=== PATIENT | male | born 1950 | race African-American/Black ===

== ENCOUNTER 2017-02-15 03:08 | Inpatient (IN) | payer MEDICARE ==
[~2017-02-15] VITALS: Ht 182.9 cm; Wt 95.3 kg
[2017-02-15] MEDS ORDERED: NKM (03:17)
[2017-02-15] MEDS ORDERED: Ketorolac 30mg Inj IV ONE (03:30)
[2017-02-15 03:47] LABS: MEAN CORPUSCULAR HGB CONC 29.9 G/DL (32.0-36.0); MEAN CORPUSCULAR VOLUME 84 FL (80-99); MEAN PLATELET VOLUME 8.5 FL (6.5-10.1); PLATELET COUNT 134 K/UL (150-450); RED CELL DISTRIBUTION WIDTH 12.8 % (11.6-14.8); WHITE BLOOD COUNT 3.4 K/UL (4.8-10.8)
[2017-02-15 03:52] VITALS: BP 126/86
[2017-02-15 04:02] LABS: ANION GAP 10 mmol/L (5-15); CALCIUM 9.2 MG/DL (8.5-10.1); CARBON DIOXIDE 28 MMOL/L (21-32); CHLORIDE 103 MMOL/L (98-107); GLOMERULAR FILTRATION RATE > 60 mL/min (>60); INR 1.1 (0.9-1.1); POTASSIUM 3.4 MMOL/L (3.5-5.1); PROTHROMBIN TIME 11.6 SEC (9.30-11.50); SODIUM 141 MMOL/L (136-145)
[2017-02-15 04:12] LABS: ALANINE AMINOTRANSFERASE 325 U/L (12-78); ALBUMIN/GLOBULIN RATIO 1.5 (1.0-2.7); AMYLASE 395 U/L (25-115); ASPARTATE AMINO TRANSFERASE 131 U/L (15-37); LIPASE 5188 U/L (73-393); TOTAL PROTEIN 7.9 G/DL (6.4-8.2)
[2017-02-15 04:21] LABS: APPEARANCE,URINE CLEAR; KETONES,URINE 1+ (NEGATIVE); LEUKOCYTE ESTERASE ,URINE 1+ (NEGATIVE); PH,URINE 5 (4.5-8.0); PROTEIN,URINE 3+ (NEGATIVE); UROBILINOGEN,URINE 12 MG/DL (0.0-1.0)
--- NOTE | 2017-02-15 04:29 | Emergency Room Report ---
History of Present Illness General Chief Complaint: Abdominal Pain Source: Patient Present Illness HPI This is a 66-year-old male with no past progression. He presents with chief complaint abdominal constipation. Onset for last couple days. He said that he has no abdominal pain and vomiting. That got better. Now complaining of constipation. Has the urge but cannot defecate. Brought him in is that yelling of his eyes. This is new. Onset for last couple days. No fever chills no chest pain. Allergies: Coded Allergies: No Known Allergies (Unverified , 02/15/17) Patient History Past Medical History: see triage record, old chart reviewed Past Surgical History: none Pertinent Family History: none Social History: Denies: smoking Immunizations: other Reviewed Nursing Documentation: PMH: Agreed, PSxH: Agreed Nursing Documentation-PMH Past Medical History: No Stated History Review of Systems Eye: Denies: eye pain, blurred vision ENT: Denies: ear pain, nose congestion, throat swelling Respiratory: Denies: cough, shortness of breath Cardiovascular: Denies: chest pain, palpitations Gastrointestinal: Reports: abdominal pain, nausea, Denies: diarrhea, vomiting Musculoskeletal: Denies: back pain, joint pain Skin: Denies: rash Neurological: Denies: headache, numbness Endocrine: Denies: increased thirst, increased urine Hematologic/Lymphatic: Denies: easy bruising All Other Systems: negative except mentioned in HPI Physical Exam Vital Signs Date Time Temp Pulse Resp B/P (MAP) Pulse Ox O2 Delivery O2 Flow Rate FiO2 02/15/17 03:12 97.3 67 18 126/86 99 Room Air vitals normal Sp02 EP Interpretation: reviewed, normal General Appearance: well appearing, no apparent distress, alert Head: normocephalic, atraumatic Eyes: bilateral eye PERRL, bilateral eye EOMI, bilateral eye scleral icterus ENT: hearing grossly normal, normal pharynx Neck: full range of motion, supple, no meningismus Respiratory: chest non-tender, lungs clear, normal breath sounds Cardiovascular #1: regular rate, rhythm, no murmur Gastrointestinal: normal bowel sounds, no mass, no organomegaly, no bruit, non- distended, tenderness - Upper quadrants Musculoskeletal: back normal, gait/station normal, normal range of motion Neurologic: alert, oriented x3 Psychiatric: mood/affect normal Skin: warm/dry Medical Decision Making Diagnostic Impression: Primary Impression: Jaundice Additional Impressions: Pancreatitis, acute Qualified Codes: K85.90 - Acute pancreatitis without necrosis or infection, unspecified Liver mass ER Course This patient presents with painless jaundice and has pancreatitis. This is concerning for neoplastic process. CT scan showed several liver lesions. Gallbladder unremarkable. We'll get for further workup. Lab Results Impression labs with abnormal LFTs CT/MRI/US Diagnostic Results CT/MRI/US Diagnostic Results : Imaging Test Ordered: CT abdomen and pelvis Impression Read by radiologist. Several of liver hypodensities. Normal appendix. Last Vital Signs Date Time Temp Pulse Resp B/P (MAP) Pulse Ox O2 Delivery O2 Flow Rate FiO2 02/15/17 03:52 97.3 60 18 126/86 99 Room Air Status: unchanged Disposition: ADMITTED INPATIENT Condition: Serious Referrals: NON PHYSICIAN (PCP) BENJAMIN DUNCAN M.D. Feb 15, 2017 04:29
[2017-02-15 04:33] LABS: NITRITE,URINE NEGATIVE (NEGATIVE)
[2017-02-15 04:35] LABS: FINE GRANULAR CASTS,URINE 0-2 /LPF; MUCUS,URINE MODERATE /LPF (NONE/OCC); RBC,URINE 0-2 /HPF (0 - 0); SQUAMOUS EPITHELIAL CELL,UR FEW /LPF (NONE/OCC); WBC,URINE 0-2 /HPF (0 - 0)
[2017-02-15 04:36] LABS: ICTOTEST POSITIVE
[2017-02-15 04:48] LABS: BILIRUBIN,DIRECT 3.8 MG/DL (0.0-0.3)
[2017-02-15 05:49] VITALS: BP 125/79
[2017-02-15 08:15] VITALS: BP 143/78
[2017-02-15] MEDS ORDERED: Morphine Sulfate 4mg/ml Inj IVP PRN (09:00)
[2017-02-15] MEDS: Heparin 5000 units/ml inj SUBQ SCH ×2 (09:00→20:21)
[2017-02-15] MEDS ORDERED: Morphine Sulfate 2mg/ml Inj IVP PRN (09:00)
[2017-02-15] MEDS ORDERED: D5 1/2NS w/KCl 20mEq 1,000 ML IV SCH (10:00)
[2017-02-15 12:15] VITALS: BP 139/50
--- NOTE | 2017-02-15 15:35 | History & Physical ---
History and Physical History & Physicial Tre Thomas MD Feb 15, 2017 15:35
--- NOTE | 2017-02-15 15:51 | GI Initial Consult Note ---
SummerRosie Victor M N.P. 02/15/17 1551: History of Present Illness General Date patient seen: Feb 15, 2017 Time patient seen: 15:40 Reason for Hospitalization: Abdominal Pain Referring physician: OMAR HUDSON Reason for Consultation: ELEVATED LFTs Present Illness HPI This is a 66-year-old male with no past progression. He presents with chief complaint abdominal constipation. Onset for last couple days. He said that he has no abdominal pain and vomiting. That got better. Now complaining of constipation. Has the urge but cannot defecate. Brought him in is that yelling of his eyes. This is new. Onset for last couple days. No fever chills no chest pain. GI consulted for pancreatitis, gallstones. HPI as noted above. Pt seen on floor , awake A&Ox4 NAD with no active s/sx of N/V/D. Pt has mild abdominal pain at this time. MRCP done today. The patient presents today with elevated LFTs and lipase. No history of endoscopies. Last colonoscopy over 10 years with unremarkable results. Patient wishes to be discharged for the holidays and return as outpatient for procedure. Home Meds Reported Medications No Known Medications* (NKM - No Known Medications*) ., 0 ., 0 Refills 02/15/17 Med list reviewed/reconciled: Yes Allergies: Coded Allergies: No Known Allergies (Unverified , 02/15/17) Patient History History Provided By: Patient, Medical Record PMH Narrative Past Medical History: see triage record, old chart reviewed Past Surgical History: none Pertinent Family History: none Social History: Denies: smoking Immunizations: other Reviewed Nursing Documentation: PMH: Agreed, PSxH: Agreed Nursing Documentation-PMH Past Medical History: No Stated History Review of Systems All Other Systems: negative except mentioned in HPI Physical Exam Vital Signs Date Time Temp Pulse Resp B/P (MAP) Pulse Ox O2 Delivery O2 Flow Rate FiO2 02/15/17 03:12 97.3 67 18 126/86 99 Room Air Sp02 EP Interpretation: reviewed, normal Labs Laboratory Tests Test 02/15/17 03:33 02/15/17 03:50 White Blood Count 3.4 K/UL (4.8-10.8) L Red Blood Count 5.50 M/UL (4.70-6.10) Hemoglobin 13.7 G/DL (14.2-18.0) L Hematocrit 46.0 % (42.0-52.0) Mean Corpuscular Volume 84 FL (80-99) Mean Corpuscular Hemoglobin 25.0 PG (27.0-31.0) L Mean Corpuscular Hemoglobin Concent 29.9 G/DL (32.0-36.0) L Red Cell Distribution Width 12.8 % (11.6-14.8) Platelet Count 134 K/UL (150-450) L Mean Platelet Volume 8.5 FL (6.5-10.1) Neutrophils (%) (Auto) % (45.0-75.0) Lymphocytes (%) (Auto) % (20.0-45.0) Monocytes (%) (Auto) % (1.0-10.0) Eosinophils (%) (Auto) % (0.0-3.0) Basophils (%) (Auto) % (0.0-2.0) Prothrombin Time 11.6 SEC (9.30-11.50) H Prothromb Time International Ratio 1.1 (0.9-1.1) Activated Partial Thromboplast Time 23 SEC (23-33) Sodium Level 141 MMOL/L (136-145) Potassium Level 3.4 MMOL/L (3.5-5.1) L Chloride Level 103 MMOL/L (98-107) Carbon Dioxide Level 28 MMOL/L (21-32) Anion Gap 10 mmol/L (5-15) Blood Urea Nitrogen 16 mg/dL (7-18) Creatinine 1.0 MG/DL (0.55-1.30) Estimat Glomerular Filtration Rate > 60 mL/min (>60) Glucose Level 116 MG/DL (74-106) H Calcium Level 9.2 MG/DL (8.5-10.1) Total Bilirubin 8.9 MG/DL (0.2-1.0) H Direct Bilirubin 3.8 MG/DL (0.0-0.3) H Aspartate Amino Transf (AST/SGOT) 131 U/L (15-37) H Alanine Aminotransferase (ALT/SGPT) 325 U/L (12-78) H Alkaline Phosphatase 83 U/L (46-116) Total Protein 7.9 G/DL (6.4-8.2) Albumin 4.7 G/DL (3.4-5.0) Globulin 3.2 g/dL Albumin/Globulin Ratio 1.5 (1.0-2.7) Amylase Level 395 U/L (25-115) H Lipase 5188 U/L (73-393) H Urine Color Daysi Urine Appearance Clear Urine pH 5 (4.5-8.0) Urine Specific [place] 1.025 (1.005-1.035) Urine Protein 3+ (NEGATIVE) H Urine Glucose (UA) Negative (NEGATIVE) Urine Ketones 1+ (NEGATIVE) H Urine Occult Blood 2+ (NEGATIVE) H Urine Nitrite Negative (NEGATIVE) Urine Bilirubin 3+ (NEGATIVE) H Urine Ictotest Positive Urine Urobilinogen 12 MG/DL (0.0-1.0) H Urine Leukocyte Esterase 1+ (NEGATIVE) H Urine RBC 0-2 /HPF (0 - 0) H Urine WBC 0-2 /HPF (0 - 0) Urine Squamous Epithelial Cells Few /LPF (NONE/OCC) Urine Bacteria None /HPF (NONE) Urine Fine Granular Casts 0-2 /LPF (NONE) H Urine Mucus Moderate /LPF (NONE/OCC) H General Appearance: well appearing, no apparent distress, alert Head: normocephalic EENT: PERRL/EOMI, normal ENT inspection Neck: supple Respiratory: normal breath sounds, no respiratory distress Cardiovascular: normal rate Gastrointestinal: normal inspection, non tender, soft, normal bowel sounds, non -distended Rectal: deferred Genitourinary: deferred Musculoskeletal: normal inspection, back normal Neurologic: normal inspection, alert, oriented x3, responsive Psychiatric: normal inspection, judgement/insight normal, memory normal Skin: normal inspection, normal color, no rash, warm/dry, palpation normal, well hydrated Lymphatic: normal inspection, no adenopathy Current Medications Current Medications Medications (Trade) Dose Ordered Sig/Alexander Route PRN Reason Start Time Stop Time Status Last Admin Dose Admin Dextrose/ Electrolytes 1,000 ml @ 75 mls/hr [id number] IV 02/15/17 10:00 03/17/17 09:59 02/15/17 11:41 Heparin Sodium (Porcine) (Heparin 5000 units/ml) 5,000 units EVERY 12 HOURS SUBQ 02/15/17 09:00 03/17/17 08:59 Morphine Sulfate (Morphine Sulfate) 2 mg Q4H PRN IVP Moderate Pain (Pain Scale 4-6) 02/15/17 09:00 02/22/17 08:59 Morphine Sulfate (Morphine Sulfate) 4 mg Q4H PRN IVP Severe Pain (Pain Scale 7-10) 02/15/17 09:00 02/22/17 08:59 Ondansetron HCl (Zofran) 4 mg Q4H PRN IVP Nausea & Vomiting 02/15/17 09:00 03/17/17 08:59 GI: Plan Problems: (1) LFT elevation (2) Pancreatitis, acute Plan LFTs highly suggestive of biliary obstruction >> fu MRCP, will consider ERCP vs ruthann maintain NPO + IVFs pain mgmt fu labs Discussed with Dr. Barrett. Thank you for this patient referral, we will follow. MAXX BARRETT 02/19/17 0814: History of Present Illness General Reason for Hospitalization: Abdominal Pain Present Illness Home Meds Reported Medications No Known Medications* (NKM - No Known Medications*) ., 0 ., 0 Refills 02/15/17 Allergies: Coded Allergies: No Known Allergies (Unverified , 02/15/17) GI: Plan Plan The patient was seen and examined at bedside and all new and available data was reviewed in the patients chart. I agree with the above findings, impression and plan. (Patient seen earlier today. Signature stamp does not reflect patient encounter time.). - MD Summer [facility] Victor M N.PCarmenza Feb 15, 2017 15:51 MAXX BARRETT Feb 19, 2017 08:14
[2017-02-15 16:15] VITALS: BP 136/86
--- NOTE | 2017-02-15 17:52 | Consultation ---
History of Present Illness General Date patient seen: Feb 15, 2017 Chief Complaint: Abdominal Pain Referring physician: OMAR HUDSON Reason for Consultation: gallstone pancreatitis Present Illness HPI 66 year old male with no known past medical history presented to ED with complaints of abdominal pain. Patient states that he was well until 5 days ago when he first began to have some vague upper abdominal pain. pain described as dull cramping in the epigastric/RUQ region. no radiation of pain. associated nausea and non bloody emesis. has not had real BM since. does have okay urine output but notes urine is very dark. over the past two days noted his sclera turning yellow. In ED labs demonstrated elevated t bili, elevated lft's, no leukocytosis. CT/MRI completed and reviewed. patient states he does not regularly follow with PCP. he does not have any known medical history. he has no surgical history. denies alcohol or drug use. does not take any meds. Allergies: Coded Allergies: No Known Allergies (Unverified , 02/15/17) Medication History Scheduled No Known Medications* (NKM - No Known Medications*), 0 ., (Reported) Patient History History Provided By: Patient Healthcare decision maker Resuscitation status Full Code Advanced Directive on File No Past Medical/Surgical History Past Medical/Surgical History: (1) Acute gallstone pancreatitis (2) Jaundice (3) Liver mass (4) Pancreatitis, acute (5) LFT elevation Review of Systems Constitutional: Denies: no symptoms, see HPI, chills, sweats, fever, malaise, weakness, other Eye: Denies: no symptoms, see HPI, eye pain, blurred vision, tearing, double vision, nose pain, nose congestion, acuity changes, discharge, other ENT: Denies: no symptoms, see HPI, ear pain, ear discharge, nose pain, nose congestion, throat pain, throat swelling, mouth pain, hearing loss, nasal discharge, other Respiratory: Denies: no symptoms, see HPI, cough, orthopnea, shortness of breath, stridor, wheezing, CELESTE, sputum, other Cardiovascular: Denies: no symptoms, see HPI, chest pain, edema, palpitations, syncope, PND, other Gastrointestinal: Reports: abdominal pain, constipation, nausea Genitourinary: Denies: no symptoms, see HPI, discharge, dysuria, frequency, hematuria, pain, retention, incontinence, urgency, vag bleed/dc, other Musculoskeletal: Denies: no symptoms, see HPI, back pain, gout, joint pain, joint swelling, muscle pain, muscle stiffness, other Skin: Denies: no symptoms, see HPI, rash, change in color, change in hair/nails , dryness, lesions, other Psychiatric: Denies: no symptoms, see HPI, prior hx, anxiety, depressed feelings, emotional problems, SI, HI, hallucinations, other Neurological: Denies: no symptoms, see HPI, headache, numbness, paresthesia, seizure, tingling, tremors, focal weakness, syncope, dizziness, other Endocrine: Denies: no symptoms, see HPI, excessive sweating, flushing, intolerance to temperature, increased thirst, increased urine, unexplained weight loss, other Hematologic/Lymphatic: Denies: no symptoms, see HPI, anemia, blood clots, easy bleeding, easy bruising, swollen glands, diathesis, other All Other Systems: negative except mentioned in HPI Physical Exam General Appearance: WD/WN, no apparent distress, alert Lines, tubes and drains: peripheral HEENT: normocephalic, mucous membranes moist, other - scleral icterus Neck: normal alignment, normal inspection Respiratory/Chest: lungs clear, normal breath sounds, no respiratory distress, no accessory muscle use Cardiovascular/Chest: normal rate, regular rhythm, regularly irregular Abdomen: normal bowel sounds, non tender, soft, no organomegaly, no mass, other - small umbilical hernia Extremities: non-tender, normal inspection Skin Exam: normal pigmentation, warm/dry, jaundice Neurologic: alert, oriented x 3, responsive Last 24 Hour Vital Signs Date Time Temp Pulse Resp B/P (MAP) Pulse Ox O2 Delivery O2 Flow Rate FiO2 02/15/17 16:15 97.6 57 22 136/86 99 Room Air 02/15/17 12:15 98.3 64 20 139/50 99 Room Air 02/15/17 08:15 97.7 53 20 143/78 100 Room Air 02/15/17 06:40 97.3 54 14 125/79 99 Room Air 02/15/17 05:49 97.3 54 14 125/79 99 Room Air 02/15/17 03:52 97.3 60 18 126/86 99 Room Air 02/15/17 03:12 97.3 67 18 126/86 99 Room Air Intake and Output 12/21/17 12/22/17 19:00 07:00 Intake Total 1000 ml Balance 1000 ml IV Total 1000 ml # Voids 1 Laboratory Tests Test 02/15/17 03:33 02/15/17 03:50 White Blood Count 3.4 K/UL (4.8-10.8) L Red Blood Count 5.50 M/UL (4.70-6.10) Hemoglobin 13.7 G/DL (14.2-18.0) L Hematocrit 46.0 % (42.0-52.0) Mean Corpuscular Volume 84 FL (80-99) Mean Corpuscular Hemoglobin 25.0 PG (27.0-31.0) L Mean Corpuscular Hemoglobin Concent 29.9 G/DL (32.0-36.0) L Red Cell Distribution Width 12.8 % (11.6-14.8) Platelet Count 134 K/UL (150-450) L Mean Platelet Volume 8.5 FL (6.5-10.1) Neutrophils (%) (Auto) % (45.0-75.0) Lymphocytes (%) (Auto) % (20.0-45.0) Monocytes (%) (Auto) % (1.0-10.0) Eosinophils (%) (Auto) % (0.0-3.0) Basophils (%) (Auto) % (0.0-2.0) Prothrombin Time 11.6 SEC (9.30-11.50) H Prothromb Time International Ratio 1.1 (0.9-1.1) Activated Partial Thromboplast Time 23 SEC (23-33) Sodium Level 141 MMOL/L (136-145) Potassium Level 3.4 MMOL/L (3.5-5.1) L Chloride Level 103 MMOL/L (98-107) Carbon Dioxide Level 28 MMOL/L (21-32) Anion Gap 10 mmol/L (5-15) Blood Urea Nitrogen 16 mg/dL (7-18) Creatinine 1.0 MG/DL (0.55-1.30) Estimat Glomerular Filtration Rate > 60 mL/min (>60) Glucose Level 116 MG/DL (74-106) H Calcium Level 9.2 MG/DL (8.5-10.1) Total Bilirubin 8.9 MG/DL (0.2-1.0) H Direct Bilirubin 3.8 MG/DL (0.0-0.3) H Aspartate Amino Transf (AST/SGOT) 131 U/L (15-37) H Alanine Aminotransferase (ALT/SGPT) 325 U/L (12-78) H Alkaline Phosphatase 83 U/L (46-116) Total Protein 7.9 G/DL (6.4-8.2) Albumin 4.7 G/DL (3.4-5.0) Globulin 3.2 g/dL Albumin/Globulin Ratio 1.5 (1.0-2.7) Amylase Level 395 U/L (25-115) H Lipase 5188 U/L (73-393) H Urine Color Daysi Urine Appearance Clear Urine pH 5 (4.5-8.0) Urine Specific [place] 1.025 (1.005-1.035) Urine Protein 3+ (NEGATIVE) H Urine Glucose (UA) Negative (NEGATIVE) Urine Ketones 1+ (NEGATIVE) H Urine Occult Blood 2+ (NEGATIVE) H Urine Nitrite Negative (NEGATIVE) Urine Bilirubin 3+ (NEGATIVE) H Urine Ictotest Positive Urine Urobilinogen 12 MG/DL (0.0-1.0) H Urine Leukocyte Esterase 1+ (NEGATIVE) H Urine RBC 0-2 /HPF (0 - 0) H Urine WBC 0-2 /HPF (0 - 0) Urine Squamous Epithelial Cells Few /LPF (NONE/OCC) Urine Bacteria None /HPF (NONE) Urine Fine Granular Casts 0-2 /LPF (NONE) H Urine Mucus Moderate /LPF (NONE/OCC) H Height (Feet): 6 Height (Inches): 0.00 Weight (Pounds): 210 Medications Current Medications Medications (Trade) Dose Ordered Sig/Alexander Route PRN Reason Start Time Stop Time Status Last Admin Dose Admin Dextrose/ Electrolytes 1,000 ml @ 75 mls/hr [id number] IV 02/15/17 10:00 03/17/17 09:59 02/15/17 11:41 Heparin Sodium (Porcine) (Heparin 5000 units/ml) 5,000 units EVERY 12 HOURS SUBQ 02/15/17 09:00 03/17/17 08:59 Morphine Sulfate (Morphine Sulfate) 2 mg Q4H PRN IVP Moderate Pain (Pain Scale 4-6) 02/15/17 09:00 02/22/17 08:59 Morphine Sulfate (Morphine Sulfate) 4 mg Q4H PRN IVP Severe Pain (Pain Scale 7-10) 02/15/17 09:00 02/22/17 08:59 Ondansetron HCl (Zofran) 4 mg Q4H PRN IVP Nausea & Vomiting 02/15/17 09:00 03/17/17 08:59 Assessment/Plan Problem List: (1) Acute gallstone pancreatitis Assessment & Plan: 66M with acute gallstone pancreatitis. afebrile, HD stable , labs with significantly elevated t bili (direct less than half), elevated lft' s, elevated lipase, no leukocytosis. no EtOH history. CT/MRCP done. awaiting final read -NPO -IV fluids -IV Abx until certain that no biliary obstruction -trend labs -check lipid panel -appreciate GI input -once jaundice improved and pancreatitis resolved should have his gallbladder removed prior to discharge. -thank you for this consult. will follow with you. ICD Codes: K85.10 - Biliary acute pancreatitis without necrosis or infection SNOMED: [id number] (2) Jaundice ICD Codes: R17 - Unspecified jaundice SNOMED: [id number] Status: stable EveretteDarrian salmon Feb 15, 2017 17:52
[2017-02-15 18:21] LABS: CHOLESTEROL 139 MG/DL (< 200); CHOLESTEROL/HDL RATIO 3.2 (3.3-4.4)
--- NOTE | 2017-02-15 18:40 | Diagnostic Imaging Report ---
Indication: Pain Technique: CT of the abdomen and pelvis utilizing automated exposure control with intravenous contrast. Venous scanning performed. CT dose: Total DLP 1040.64 mGycm; CTDI vol 18.4 mGy Comparison: None Findings: Dependent atelectasis noted in the lower lungs. The heart is mildly enlarged. Coronary arterial calcifications noted. There is no pericardial effusion. Multiple well-circumscribed liver hypodensities are noted. Some of these meet the criteria of simple hepatic cysts. A 1.4 cm lesion in the caudate represent some peripheral nodular enhancement which would be characteristic of a hematoma. 1.7 cm lesion in the posterior right hepatic lobe is not fully characterize but may represent a cyst versus hemangioma. The gallbladder is mildly distended. There is layering gallstones noted in the gallbladder. No CT evidence to suggest an acute cholecystitis. No biliary ductal dilatation. Spleen, adrenal glands and pancreas are unremarkable. Specifically, pancreatic enhancement is uniform. There is no peripancreatic fluid collection. Multiple small renal hypodensities may represent renal cysts. There is a nonobstructing stone in the midpole the right kidney. No evidence of hydronephrosis bilaterally. Apparent thickening of the bladder wall likely related to underdistention. Prostate is mildly heterogeneous with some coarse central calcifications. There is no bowel obstruction. No free intraperitoneal air or fluid. There is colonic diverticulosis without evidence of acute diverticulitis are evaluation is limited without oral contrast. This is normal There is a small fat-containing right inguinal hernia. There is a small fat-containing umbilical hernia. Multilevel degenerative changes are seen in the spine. Abdominal aorta is normal in caliber. Multilevel degenerative changes are noted in the thoracolumbar spine. Impression: Diverticulosis without definite evidence of diverticulitis however evaluation is limited without oral contrast. Cholelithiasis without evidence of acute cholecystitis. Multiple well-circumscribed hypodensities in the liver, many of which likely represent simple hepatic cysts. Additional lesions are not fully characterized and may represent cysts or hemangiomas. Consider further evaluation with dynamic contrast-enhanced liver protocol MRI on a nonemergent basis for definitive characterization. Bladder wall thickening likely related to underdistention. Correlate with urinalysis to exclude cystitis. Punctate nonobstructing right renal stone. Hydronephrosis bilaterally. Mild cardiomegaly. Coronary arterial calcifications. Bilateral renal hypodensities possibly representing simple renal cyst. Further characterization with ultrasound or MRI recommended as clinically indicated. The CT scanner at [facility] is accredited by the [employer] and the scans are performed using protocols designed to limit radiation exposure to as low as reasonably achievable to attain images of sufficient resolution adequate for diagnostic evaluation.
--- NOTE | 2017-02-15 18:49 | Diagnostic Imaging Report ---
Indication: Cholelithiasis Technique: MRI of the abdomen was performed in a 1.5 Yadira magnet. Pulse sequences obtained include coronal and axial T2 single shot fast spin echo breathhold and respiratory gated coronal T2 3-D M.R.C.P.; this data set was displayed in different projections or MIPs. In addition, multiple coronal oblique thin T2 weighted, fat saturated SE sequences obtained through the CBD. Comparison: Correlation made to concurrent CT of the abdomen/pelvis Findings: Images degraded by patient motion. Imaged lung bases are grossly clear. The heart is borderline enlarged. There is no pericardial effusion. The liver is normal in size and contour. Multiple T2 hyperintense lesions are noted throughout the liver which may represent cysts or hemangiomas. These are not fully characterized on this exam. There is cholelithiasis. No evidence to suggest acute cholecystitis. There is no intrahepatic or extrahepatic biliary ductal dilatation. No definite filling defect is seen within the biliary system to suggest choledocholithiasis. The pancreatic duct appears normal in caliber. Pancreatic signal is uniform. No peripancreatic fluid collection. Multiple bilateral renal cysts are noted. There is no bowel obstruction. Colonic diverticulosis is partially visualized. The spleen, adrenal glands are unremarkable in appearance. Impression: Exam degraded by patient motion. Within these limitations: Cholelithiasis. No evidence to suggest acute cholecystitis. No definite choledocholithiasis seen. No biliary ductal dilatation. No focal pancreatic signal abnormality or peripancreatic fluid collection. Multiple T2 hyperintense liver lesions likely representing cysts or hemangiomas. These are not fully characterized on this noncontrast exam. Dynamic contrast enhanced liver MRI may be obtained for definitive characterization on a nonemergent basis clinically indicated. Renal cysts. Colonic diverticulosis.
[2017-02-15 20:00] VITALS: BP 144/95
[2017-02-15] MEDS: D5 1/2NS w/KCl 20mEq 1,000 ML IV SCH (20:10)
[2017-02-15] MEDS: cefTRIAXone 2 GM in D5W 55 ML IVPB SCH (20:10)
--- NOTE | 2017-02-15 21:03 | History and Physical Report ---
DATE OF ADMISSION: 02/15/2017 CHIEF COMPLAINT: Abdominal pain, mostly epigastric area. HISTORY OF PRESENT ILLNESS: This is a 66 years old gentleman, who denies any past medical history or past surgical history, who has presented to emergency room complaining about abdominal pain associated with constipation. He stated that last Saturday, four days ago, he started having constipation, poor appetite, no bowel movement. He induced himself to vomit. He said his symptoms did not improve and got progressively worsening over the past several days to the point that he decided to come to the emergency room. Shortly after initial evaluation in the emergency, the patient was noted to have elevated amylase and lipase and abnormal liver functions and subsequently, the patient was admitted to the hospital with pancreatitis, possible gallstone pancreatitis. PAST MEDICAL HISTORY: As above none. PAST SURGICAL HISTORY: As above none. MEDICATIONS: Medications at home are none. ALLERGIES: No known drug allergies. SOCIAL HISTORY: The patient smokes marijuana occasionally. Very rarely drinks. Denies any substance abuse. He is retired at this time. FAMILY HISTORY: Mother in 50s due to the brain tumor and father in early age in 44 due to acute coronary artery disease. REVIEW OF SYSTEMS: Mostly as above. Denies any dysuria, frequency, hematuria, or hematochezia. Complained about constipation, abdominal pain associated with nausea. Denies any hemoptysis or hematochezia. Denies any bright red blood per rectum. Denies any loss of consciousness. Denies any suicidal or homicidal ideation. PHYSICAL EXAMINATION: VITAL SIGNS: On admission, temperature 97.3, pulse of 67, respirations 18, and blood pressure 126/86. GENERAL: The patient is awake and responsive, in no acute distress. HEAD AND NECK: Pupils are equal and reactive to light. Extraocular movements are intact. Neck was supple. No JVD. LUNGS: Good air entry. No wheezing or rales. HEART: S1 and S2. Regular rhythm. No gallops. ABDOMEN: Soft. Tenderness in the epigastric area. No rebound tenderness. No fluid shift. EXTREMITIES: No cyanosis, clubbing, or edema. NEUROLOGIC: Cranial nerves II through XII grossly intact. Motor strength is 5/5 in all the extremities. LABORATORY DATA: Laboratory on admission, WBC of 3.4, hemoglobin 13, hematocrit 46, and platelets is 134. Sodium 141, potassium 3.4, chloride 103, bicarbonate 28, BUN 16, creatinine 1.0, and glucose is 116. Total bilirubin of 8.9, direct bilirubin of 3.8. AST of 131, ALT of 325, alkaline phosphatase of 83. Amylase is 395, lipase is 5188. PT of 11, INR 1.0, and PTT of 23. Urinalysis, +2 occult blood, +2 bilirubin, positive icterus, +1 leukocytes, and moderate mucosa. ASSESSMENT: 1. Jaundice, abnormal liver function, and epigastric pain, most likely secondary to pancreatitis, possible gallstone pancreatitis. 2. Dehydration. 3. Hypokalemia. PLAN: Admit the patient to medical/surgical. We will follow up with the pain medication. Clear liquid diet. Advance as tolerated. Consider MRCP of the abdomen. Discussed with Dr. Barrett from Gastroenterology as well as consider General Surgery consultation. We will follow up with laboratory. Pain medication. DVT prophylaxis and heparin subcutaneously. Code status is Full Code. Tre Thomas M.D. DR: Jacqueline JOB#: [id number] CC:
[2017-02-16] VITALS: BP 135/76
[2017-02-16] MEDS: D5 1/2NS w/KCl 20mEq 1,000 ML IV SCH ×4 (03:18→19:00)
[2017-02-16 04:00] VITALS: BP 137/89
[2017-02-16 08:00] VITALS: BP 129/94
[2017-02-16 08:04] LABS: MEAN CORPUSCULAR HGB CONC 30.6 G/DL (32.0-36.0); MEAN CORPUSCULAR VOLUME 85 FL (80-99); MEAN PLATELET VOLUME 8.8 FL (6.5-10.1); PLATELET COUNT 111 K/UL (150-450); RED CELL DISTRIBUTION WIDTH 12.6 % (11.6-14.8)
--- NOTE | 2017-02-16 08:32 | General Progress Note ---
Assessment/Plan Problem List: (1) Jaundice ICD Codes: R17 - Unspecified jaundice SNOMED: 03750001 (2) LFT elevation ICD Codes: R79.89 - Other specified abnormal findings of blood chemistry SNOMED: 795232004, 513773057 (3) Acute gallstone pancreatitis ICD Codes: K85.10 - Biliary acute pancreatitis without necrosis or infection SNOMED: 315309125 Assessment/Plan CT and MRI reviwed ? passed CBD stone start clears fu labs tumor markers fu surgery ? EUS on Tue if needed Subjective ROS Limited/Unobtainable: Yes Allergies: Coded Allergies: No Known Allergies (Unverified , 02/15/17) Subjective no BM for 7 days no abd pain no N/V Objective Last 24 Hour Vital Signs Date Time Temp Pulse Resp B/P (MAP) Pulse Ox O2 Delivery O2 Flow Rate FiO2 02/16/17 04:00 97.5 51 18 137/89 100 Room Air 02/16/17 00:00 98.1 50 18 135/76 99 Room Air 02/15/17 20:57 97.6 02/15/17 20:00 100 Room Air 02/15/17 20:00 98.1 55 20 144/95 100 02/15/17 16:15 97.6 57 22 136/86 99 Room Air 02/15/17 12:15 98.3 64 20 139/50 99 Room Air Intake and Output 02/15/17 02/16/17 19:00 07:00 Intake Total 1485 ml 1328 ml Balance 1485 ml 1328 ml Intake Oral 960 ml IV Total 525 ml 1328 ml # Voids 3 Laboratory Tests 02/16/17 05:26: White Blood Count 2.0*L, Red Blood Count 4.50L, Hemoglobin 11.7L, Hematocrit 38.2L, Mean Corpuscular Volume 85, Mean Corpuscular Hemoglobin 26.0L, Mean Corpuscular Hemoglobin Concent 30.6L, Red Cell Distribution Width 12.6, Platelet Count 111L, Mean Platelet Volume 8.8, Neutrophils (%) (Auto) , Lymphocytes (%) (Auto) , Monocytes (%) (Auto) , Eosinophils (%) (Auto) , Basophils (%) (Auto) , Neutrophils % (Manual) [Pending], Lymphocytes % (Manual) [Pending], Platelet Estimate [Pending], Platelet Morphology [Pending], Sodium Level [Pending], Potassium Level [Pending], Chloride Level [Pending], Carbon Dioxide Level [Pending], Blood Urea Nitrogen [Pending], Creatinine [Pending], Estimat Glomerular Filtration Rate [Pending], Glucose Level [Pending], Calcium Level [Pending], Phosphorus Level [Pending], Magnesium Level [Pending], Total Bilirubin [Pending], Aspartate Amino Transf (AST/SGOT) [Pending], Alanine Aminotransferase (ALT/SGPT) [Pending], Alkaline Phosphatase [Pending], Total Protein [Pending], Albumin [Pending], Globulin [Pending], Lipase [Pending] Height (Feet): 6 Height (Inches): 0.00 Weight (Pounds): 210 General Appearance: alert EENT: normal ENT inspection Neck: supple Cardiovascular: normal rate Respiratory/Chest: lungs clear Abdomen: normal bowel sounds, non tender, soft Extremities: non-tender MAXX YOUNGBLOOD Feb 16, 2017 08:32
[2017-02-16 08:44] LABS: ALANINE AMINOTRANSFERASE 216 U/L (12-78); ALBUMIN/GLOBULIN RATIO 1.3 (1.0-2.7); ANION GAP 6 mmol/L (5-15); ASPARTATE AMINO TRANSFERASE 54 U/L (15-37); CALCIUM 7.5 MG/DL (8.5-10.1); CARBON DIOXIDE 29 MMOL/L (21-32); CHLORIDE 107 MMOL/L (98-107); CREATININE 0.8 MG/DL (0.55-1.30); GLOMERULAR FILTRATION RATE > 60 mL/min (>60); LIPASE 377 U/L (73-393); MAGNESIUM 1.9 MG/DL (1.8-2.4); PHOSPHORUS 3.1 MG/DL (2.5-4.9); POTASSIUM 4.5 MMOL/L (3.5-5.1); SODIUM 142 MMOL/L (136-145); TOTAL PROTEIN 6.5 G/DL (6.4-8.2)
[2017-02-16 08:50] LABS: BILIRUBIN,DIRECT 0.8 MG/DL (0.0-0.3)
[2017-02-16] MEDS: Docusate 100mg cap ORAL SCH ×2 (09:43→17:24)
[2017-02-16 10:49] LABS: ANISOCYTOSIS 1+; BAND NEUTROPHILS % (MANUAL) 0 % (0-8); BASOPHILS % (MANUAL) 0 % (0-2); EOSINOPHILS % (MANUAL) 9 % (0-3); HYPOCHROMASIA 1+; LYMPHOCYTES % (MANUAL) 55 % (20-45); NEUTROPHILS % (MANUAL) 22 % (45-75); PLATELET ESTIMATE DECREASED; PLATELET MORPHOLOGY NORMAL; TOTAL CELLS COUNTED 100
--- NOTE | 2017-02-16 12:17 | General Progress Note ---
Progress Note Progress Note Surgery: patient seen and examined at bedside. no acute events. doing well. no pain. no n/v/f/c. 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 afebrile, HD stable, VSS. jaundice improved and sclera more white today. no abdominal pain. exam benign labs improved. wbc low and needs to be monitored. t bili significantly down, lft's improved, lipase normalized. CT/MRI reviewed 66M gallstone pancreatitis. resolving -okay for clear liquids -ambulate and oob -okay to shower -trend labs; repeat AM labs -recommend cholecystectomy prior to discharge. discussed findings and recommendation with patient. he expressed understanding and is currently deciding on surgery. will tentatively schedule for saturday. thank you for this consult. will follow. Darrian Cardozo Feb 16, 2017 12:17
[2017-02-16 16:05] VITALS: BP 163/93
[2017-02-16 16:43] VITALS: BP 136/93
[2017-02-16 20:00] VITALS: BP 141/86
[2017-02-16] MEDS: Miralax 17gm pkt ORAL SCH (20:48)
[2017-02-16] MEDS: cefTRIAXone 2 GM in D5W 55 ML IVPB SCH (20:49)
--- NOTE | 2017-02-16 23:34 | Internal Med Progress Note ---
Subjective Physician Name Tre Thomas Attending Physician Ter Thomas MD Current Medications Medications (Trade) Dose Ordered Sig/Alexander Route PRN Reason Start Time Stop Time Status Last Admin Dose Admin Ceftriaxone Sodium 2 gm/ Dextrose 55 ml @ 110 mls/hr Q24H IVPB 02/15/17 19:30 02/22/17 19:29 02/16/17 20:49 Dextrose/ Electrolytes 1,000 ml @ 125 mls/hr Q8H IV 02/15/17 19:00 03/17/17 18:59 02/16/17 14:30 Docusate Sodium (Colace) 100 mg TWICE A DAY ORAL 02/16/17 09:00 03/18/17 08:59 02/16/17 17:24 Morphine Sulfate (Morphine Sulfate) 2 mg Q4H PRN IVP Moderate Pain (Pain Scale 4-6) 02/15/17 09:00 02/22/17 08:59 02/15/17 20:27 Morphine Sulfate (Morphine Sulfate) 4 mg Q4H PRN IVP Severe Pain (Pain Scale 7-10) 02/15/17 09:00 02/22/17 08:59 Ondansetron HCl (Zofran) 4 mg Q4H PRN IVP Nausea & Vomiting 02/15/17 09:00 03/17/17 08:59 Polyethylene Glycol (Miralax) 17 gm BEDTIME ORAL 02/16/17 21:00 03/18/17 20:59 02/16/17 20:48 Allergies: Coded Allergies: No Known Allergies (Unverified , 02/15/17) Subjective awake, alert, responsive, NAD, No CP or SOB, No abdominal pain. Objective Last Vital Signs Date Time Temp Pulse Resp B/P (MAP) Pulse Ox O2 Delivery O2 Flow Rate FiO2 02/16/17 20:00 98.2 56 18 141/86 99 02/16/17 04:00 Room Air Laboratory Tests Test 02/16/17 05:26 White Blood Count 2.0 K/UL (4.8-10.8) *L Red Blood Count 4.50 M/UL (4.70-6.10) L Hemoglobin 11.7 G/DL (14.2-18.0) L Hematocrit 38.2 % (42.0-52.0) L Mean Corpuscular Volume 85 FL (80-99) Mean Corpuscular Hemoglobin 26.0 PG (27.0-31.0) L Mean Corpuscular Hemoglobin Concent 30.6 G/DL (32.0-36.0) L Red Cell Distribution Width 12.6 % (11.6-14.8) Platelet Count 111 K/UL (150-450) L Mean Platelet Volume 8.8 FL (6.5-10.1) Neutrophils (%) (Auto) % (45.0-75.0) Lymphocytes (%) (Auto) % (20.0-45.0) Monocytes (%) (Auto) % (1.0-10.0) Eosinophils (%) (Auto) % (0.0-3.0) Basophils (%) (Auto) % (0.0-2.0) Differential Total Cells Counted 100 Neutrophils % (Manual) 22 % (45-75) L Lymphocytes % (Manual) 55 % (20-45) H Monocytes % (Manual) 14 % (1-10) H Eosinophils % (Manual) 9 % (0-3) H Basophils % (Manual) 0 % (0-2) Band Neutrophils 0 % (0-8) Platelet Estimate Decreased L Platelet Morphology Normal Hypochromasia 1+ Anisocytosis 1+ Sodium Level 142 MMOL/L (136-145) Potassium Level 4.5 MMOL/L (3.5-5.1) Chloride Level 107 MMOL/L (98-107) Carbon Dioxide Level 29 MMOL/L (21-32) Anion Gap 6 mmol/L (5-15) Blood Urea Nitrogen 11 mg/dL (7-18) Creatinine 0.8 MG/DL (0.55-1.30) Estimat Glomerular Filtration Rate > 60 mL/min (>60) Glucose Level 104 MG/DL (74-106) Calcium Level 7.5 MG/DL (8.5-10.1) L Phosphorus Level 3.1 MG/DL (2.5-4.9) Magnesium Level 1.9 MG/DL (1.8-2.4) Total Bilirubin 2.9 MG/DL (0.2-1.0) H Direct Bilirubin 0.8 MG/DL (0.0-0.3) H Aspartate Amino Transf (AST/SGOT) 54 U/L (15-37) H Alanine Aminotransferase (ALT/SGPT) 216 U/L (12-78) H Alkaline Phosphatase 64 U/L (46-116) Total Protein 6.5 G/DL (6.4-8.2) Albumin 3.7 G/DL (3.4-5.0) Globulin 2.8 g/dL Albumin/Globulin Ratio 1.3 (1.0-2.7) Lipase 377 U/L (73-393) Intake and Output 02/15/17 02/16/17 19:00 07:00 Intake Total 1485 ml 1328 ml Balance 1485 ml 1328 ml Intake Oral 960 ml IV Total 525 ml 1328 ml # Voids 3 Objective General: No acute distress, awake and alert HEENT: NCAT, sclera anicteric, PERRL, EOMI. Neck: Supple, no significant jugular venous distention, Lungs: Good inspiratory effort, clear to auscultation bilaterally, no Wheeze or Rales. Heart: Regular rate and rhythm, normal S1/S2, no murmurs Abdomen: soft, nontender, nondistended. Normoactive bowel sounds. Extremities: No Cyanosis , clubbing or edema. Neuro: A&O x 3, Able to move all extremities Skin: warm, no rashes or lesions Psych: Normal mood and affect Assessment/Plan Assessment/Plan 1. Jaundice, abnormal liver function, and epigastric pain --> pancreatitis, most likely gallstone pancreatitis. 2. Dehydration. 3. Hypokalemia. PLAN: on medical/surgical. pain medication. Clear liquid diet. Advance as tolerated. Dr. Barrett from Gastroenterology Dr. Cardozo from General Surgery consultation. monitor laboratory. DVT prophylaxis and heparin subcutaneously. Code status is Full Code. Abx: Rocephin IVF MRCP abdomen Impression: Exam degraded by patient motion. Within these limitations: Cholelithiasis. No evidence to suggest acute cholecystitis. No definite choledocholithiasis seen. No biliary ductal dilatation. No focal pancreatic signal abnormality or peripancreatic fluid collection. Multiple T2 hyperintense liver lesions likely representing cysts or hemangiomas. These are not fully characterized on this noncontrast exam. Dynamic contrast enhanced liver MRI may be obtained for definitive characterization on a nonemergent basis clinically indicated. Renal cysts. Colonic diverticulosis. Tre Thomas MD Feb 16, 2017 23:33
[2017-02-17] VITALS: BP 144/88
[2017-02-17] MEDS: D5 1/2NS w/KCl 20mEq 1,000 ML IV SCH ×3 (02:04→21:05)
[2017-02-17 04:20] VITALS: BP 138/83
[2017-02-17 07:18] LABS: MEAN CORPUSCULAR HEMOGLOBIN 25.6 PG (27.0-31.0); MEAN CORPUSCULAR HGB CONC 30.5 G/DL (32.0-36.0); MEAN CORPUSCULAR VOLUME 84 FL (80-99); MEAN PLATELET VOLUME 9.7 FL (6.5-10.1); PLATELET COUNT 123 K/UL (150-450); RED BLOOD COUNT 4.69 M/UL (4.70-6.10); RED CELL DISTRIBUTION WIDTH 12.7 % (11.6-14.8)
[2017-02-17 07:53] LABS: ALANINE AMINOTRANSFERASE 155 U/L (12-78); ALBUMIN/GLOBULIN RATIO 1.3 (1.0-2.7); AMYLASE 52 U/L (25-115); ANION GAP 7 mmol/L (5-15); ASPARTATE AMINO TRANSFERASE 30 U/L (15-37); CALCIUM 7.7 MG/DL (8.5-10.1); CARBON DIOXIDE 28 MMOL/L (21-32); CHLORIDE 107 MMOL/L (98-107); CREATININE 0.8 MG/DL (0.55-1.30); GLOMERULAR FILTRATION RATE > 60 mL/min (>60); LIPASE 216 U/L (73-393); POTASSIUM 4.1 MMOL/L (3.5-5.1); SODIUM 142 MMOL/L (136-145); TOTAL PROTEIN 6.6 G/DL (6.4-8.2)
[2017-02-17 07:56] LABS: WHITE BLOOD COUNT 2.1 K/UL (4.8-10.8)
[2017-02-17 07:58] LABS: BILIRUBIN,DIRECT 0.7 MG/DL (0.0-0.3)
[2017-02-17 07:59] LABS: BAND NEUTROPHILS % (MANUAL) 0 % (0-8); BASOPHILS % (MANUAL) 0 % (0-2); EOSINOPHILS % (MANUAL) 10 % (0-3); LYMPHOCYTES % (MANUAL) 45 % (20-45); NEUTROPHILS % (MANUAL) 29 % (45-75); PLATELET ESTIMATE DECREASED; TOTAL CELLS COUNTED 100
[2017-02-17 08:00] VITALS: BP 138/93
[2017-02-17 08:00] LABS: ANISOCYTOSIS 1+; HYPOCHROMASIA 1+; PLATELET MORPHOLOGY NORMAL
[2017-02-17] MEDS: Docusate 100mg cap ORAL SCH ×2 (09:30→17:13)
--- NOTE | 2017-02-17 09:46 | General Progress Note ---
Assessment/Plan Problem List: (1) Jaundice ICD Codes: R17 - Unspecified jaundice SNOMED: 76595605 (2) LFT elevation ICD Codes: R79.89 - Other specified abnormal findings of blood chemistry SNOMED: 831539915, 494895220 (3) Acute gallstone pancreatitis ICD Codes: K85.10 - Biliary acute pancreatitis without necrosis or infection SNOMED: 914526711 Assessment/Plan CT and MRI reviwed ? passed CBD stone advance to full liquid fu labs tumor markers fu surgery Subjective ROS Limited/Unobtainable: Yes Allergies: Coded Allergies: No Known Allergies (Unverified , 02/15/17) Subjective no abd pain no N/V Objective Last 24 Hour Vital Signs Date Time Temp Pulse Resp B/P (MAP) Pulse Ox O2 Delivery O2 Flow Rate FiO2 02/17/17 08:00 97.7 62 18 138/93 100 Room Air 02/17/17 04:20 98.2 60 19 138/83 99 02/17/17 00:00 98.2 61 20 144/88 100 02/16/17 20:00 98.2 56 18 141/86 99 02/16/17 16:43 97.5 57 20 136/93 99 02/16/17 16:05 97.5 57 20 163/93 100 Intake and Output 02/16/17 02/17/17 19:00 07:00 Intake Total 1800 ml 1295 ml Balance 1800 ml 1295 ml Intake Oral 800 ml 240 ml IV Total 1000 ml 1055 ml # Voids 3 2 Laboratory Tests 02/17/17 05:56: White Blood Count 2.1*L, Red Blood Count 4.69L, Hemoglobin 12.0L, Hematocrit 39.4L, Mean Corpuscular Volume 84, Mean Corpuscular Hemoglobin 25.6L, Mean Corpuscular Hemoglobin Concent 30.5L, Red Cell Distribution Width 12.7, Platelet Count 123L, Mean Platelet Volume 9.7, Neutrophils (%) (Auto) , Lymphocytes (%) (Auto) , Monocytes (%) (Auto) , Eosinophils (%) (Auto) , Basophils (%) (Auto) , Differential Total Cells Counted 100, Neutrophils % ( Manual) 29L, Lymphocytes % (Manual) 45, Monocytes % (Manual) 16H, Eosinophils % (Manual) 10H, Basophils % (Manual) 0, Band Neutrophils 0, Platelet Estimate DecreasedL, Platelet Morphology Normal, Hypochromasia 1+, Anisocytosis 1+, Sodium Level 142, Potassium Level 4.1, Chloride Level 107, Carbon Dioxide Level 28, Anion Gap 7, Blood Urea Nitrogen 6L, Creatinine 0.8, Estimat Glomerular Filtration Rate > 60, Glucose Level 116H, Calcium Level 7.7L, Total Bilirubin 1.9H, Direct Bilirubin 0.7H, Aspartate Amino Transf (AST/SGOT) 30, Alanine Aminotransferase (ALT/SGPT) 155H, Alkaline Phosphatase 61, Total Protein 6.6, Albumin 3.7, Globulin 2.9, Albumin/Globulin Ratio 1.3, Amylase Level 52, Lipase 216 Height (Feet): 6 Height (Inches): 0.00 Weight (Pounds): 210 General Appearance: alert EENT: normal ENT inspection Neck: supple Cardiovascular: normal rate Respiratory/Chest: lungs clear Abdomen: normal bowel sounds, non tender, soft, no organomegaly Extremities: non-tender MAXX YOUNGBLOOD Feb 17, 2017 09:46
[2017-02-17 12:00] VITALS: BP 141/91
--- NOTE | 2017-02-17 15:37 | General Surgery Progress Note ---
General Surgery-Progress Note Subjective Symptoms: improved Additional Comments doing well. no complaints. labs improved. Objective Last 24 Hour Vital Signs Date Time Temp Pulse Resp B/P (MAP) Pulse Ox O2 Delivery O2 Flow Rate FiO2 02/17/17 12:00 97.2 61 18 141/91 99 Room Air 02/17/17 08:00 97.7 62 18 138/93 100 Room Air 02/17/17 04:20 98.2 60 19 138/83 99 02/17/17 00:00 98.2 61 20 144/88 100 02/16/17 20:00 98.2 56 18 141/86 99 02/16/17 16:43 97.5 57 20 136/93 99 02/16/17 16:05 97.5 57 20 163/93 100 I&O Intake and Output 02/16/17 02/17/17 19:00 07:00 Intake Total 1800 ml 1295 ml Balance 1800 ml 1295 ml Intake Oral 800 ml 240 ml IV Total 1000 ml 1055 ml # Voids 3 2 Drains: none Cardiovascular: RSR Respiratory: clear Abdomen: flat, non-tender, present bowel sounds Extremities: no tenderness Laboratory Tests Test 02/17/17 05:56 White Blood Count 2.1 K/UL (4.8-10.8) *L Red Blood Count 4.69 M/UL (4.70-6.10) L Hemoglobin 12.0 G/DL (14.2-18.0) L Hematocrit 39.4 % (42.0-52.0) L Mean Corpuscular Volume 84 FL (80-99) Mean Corpuscular Hemoglobin 25.6 PG (27.0-31.0) L Mean Corpuscular Hemoglobin Concent 30.5 G/DL (32.0-36.0) L Red Cell Distribution Width 12.7 % (11.6-14.8) Platelet Count 123 K/UL (150-450) L Mean Platelet Volume 9.7 FL (6.5-10.1) Neutrophils (%) (Auto) % (45.0-75.0) Lymphocytes (%) (Auto) % (20.0-45.0) Monocytes (%) (Auto) % (1.0-10.0) Eosinophils (%) (Auto) % (0.0-3.0) Basophils (%) (Auto) % (0.0-2.0) Differential Total Cells Counted 100 Neutrophils % (Manual) 29 % (45-75) L Lymphocytes % (Manual) 45 % (20-45) Monocytes % (Manual) 16 % (1-10) H Eosinophils % (Manual) 10 % (0-3) H Basophils % (Manual) 0 % (0-2) Band Neutrophils 0 % (0-8) Platelet Estimate Decreased L Platelet Morphology Normal Hypochromasia 1+ Anisocytosis 1+ Sodium Level 142 MMOL/L (136-145) Potassium Level 4.1 MMOL/L (3.5-5.1) Chloride Level 107 MMOL/L (98-107) Carbon Dioxide Level 28 MMOL/L (21-32) Anion Gap 7 mmol/L (5-15) Blood Urea Nitrogen 6 mg/dL (7-18) L Creatinine 0.8 MG/DL (0.55-1.30) Estimat Glomerular Filtration Rate > 60 mL/min (>60) Glucose Level 116 MG/DL (74-106) H Calcium Level 7.7 MG/DL (8.5-10.1) L Total Bilirubin 1.9 MG/DL (0.2-1.0) H Direct Bilirubin 0.7 MG/DL (0.0-0.3) H Aspartate Amino Transf (AST/SGOT) 30 U/L (15-37) Alanine Aminotransferase (ALT/SGPT) 155 U/L (12-78) H Alkaline Phosphatase 61 U/L (46-116) Total Protein 6.6 G/DL (6.4-8.2) Albumin 3.7 G/DL (3.4-5.0) Globulin 2.9 g/dL Albumin/Globulin Ratio 1.3 (1.0-2.7) Amylase Level 52 U/L (25-115) Lipase 216 U/L (73-393) Plan Problems: (1) Acute gallstone pancreatitis Assessment & Plan: 66M with acute gallstone pancreatitis. afebrile, HD stable , labs improved. t bili down, lft's down. lipase normal. CT/MRCP reviewed. no choledocholithiases. likely passed stone -now that resolved plan for lap vs open ruthann tomorrow -npo after midnight -iv fluids consent (2) Jaundice Darrian Cardozo Feb 17, 2017 15:37
--- NOTE | 2017-02-17 15:39 | Internal Med Progress Note ---
Subjective Physician Name Tre Thomas Attending Physician Tre Thomas MD Current Medications Medications (Trade) Dose Ordered Sig/Alexander Route PRN Reason Start Time Stop Time Status Last Admin Dose Admin Ceftriaxone Sodium 2 gm/ Dextrose 55 ml @ 110 mls/hr Q24H IVPB 02/15/17 19:30 02/22/17 19:29 02/16/17 20:49 Dextrose/ Electrolytes 1,000 ml @ 125 mls/hr Q8H IV 02/15/17 19:00 03/17/17 18:59 02/17/17 11:17 Docusate Sodium (Colace) 100 mg TWICE A DAY ORAL 02/16/17 09:00 03/18/17 08:59 02/16/17 17:24 Morphine Sulfate (Morphine Sulfate) 2 mg Q4H PRN IVP Moderate Pain (Pain Scale 4-6) 02/15/17 09:00 02/22/17 08:59 02/15/17 20:27 Morphine Sulfate (Morphine Sulfate) 4 mg Q4H PRN IVP Severe Pain (Pain Scale 7-10) 02/15/17 09:00 02/22/17 08:59 Ondansetron HCl (Zofran) 4 mg Q4H PRN IVP Nausea & Vomiting 02/15/17 09:00 03/17/17 08:59 Polyethylene Glycol (Miralax) 17 gm BEDTIME ORAL 02/16/17 21:00 03/18/17 20:59 02/16/17 20:48 Allergies: Coded Allergies: No Known Allergies (Unverified , 02/15/17) Subjective awake, alert, responsive, NAD, No CP or SOB, No abdominal pain. Objective Last Vital Signs Date Time Temp Pulse Resp B/P (MAP) Pulse Ox O2 Delivery O2 Flow Rate FiO2 02/17/17 12:00 97.2 61 18 141/91 99 Room Air Laboratory Tests Test 02/17/17 05:56 White Blood Count 2.1 K/UL (4.8-10.8) *L Red Blood Count 4.69 M/UL (4.70-6.10) L Hemoglobin 12.0 G/DL (14.2-18.0) L Hematocrit 39.4 % (42.0-52.0) L Mean Corpuscular Volume 84 FL (80-99) Mean Corpuscular Hemoglobin 25.6 PG (27.0-31.0) L Mean Corpuscular Hemoglobin Concent 30.5 G/DL (32.0-36.0) L Red Cell Distribution Width 12.7 % (11.6-14.8) Platelet Count 123 K/UL (150-450) L Mean Platelet Volume 9.7 FL (6.5-10.1) Neutrophils (%) (Auto) % (45.0-75.0) Lymphocytes (%) (Auto) % (20.0-45.0) Monocytes (%) (Auto) % (1.0-10.0) Eosinophils (%) (Auto) % (0.0-3.0) Basophils (%) (Auto) % (0.0-2.0) Differential Total Cells Counted 100 Neutrophils % (Manual) 29 % (45-75) L Lymphocytes % (Manual) 45 % (20-45) Monocytes % (Manual) 16 % (1-10) H Eosinophils % (Manual) 10 % (0-3) H Basophils % (Manual) 0 % (0-2) Band Neutrophils 0 % (0-8) Platelet Estimate Decreased L Platelet Morphology Normal Hypochromasia 1+ Anisocytosis 1+ Sodium Level 142 MMOL/L (136-145) Potassium Level 4.1 MMOL/L (3.5-5.1) Chloride Level 107 MMOL/L (98-107) Carbon Dioxide Level 28 MMOL/L (21-32) Anion Gap 7 mmol/L (5-15) Blood Urea Nitrogen 6 mg/dL (7-18) L Creatinine 0.8 MG/DL (0.55-1.30) Estimat Glomerular Filtration Rate > 60 mL/min (>60) Glucose Level 116 MG/DL (74-106) H Calcium Level 7.7 MG/DL (8.5-10.1) L Total Bilirubin 1.9 MG/DL (0.2-1.0) H Direct Bilirubin 0.7 MG/DL (0.0-0.3) H Aspartate Amino Transf (AST/SGOT) 30 U/L (15-37) Alanine Aminotransferase (ALT/SGPT) 155 U/L (12-78) H Alkaline Phosphatase 61 U/L (46-116) Total Protein 6.6 G/DL (6.4-8.2) Albumin 3.7 G/DL (3.4-5.0) Globulin 2.9 g/dL Albumin/Globulin Ratio 1.3 (1.0-2.7) Amylase Level 52 U/L (25-115) Lipase 216 U/L (73-393) Intake and Output 02/16/17 02/17/17 19:00 07:00 Intake Total 1800 ml 1295 ml Balance 1800 ml 1295 ml Intake Oral 800 ml 240 ml IV Total 1000 ml 1055 ml # Voids 3 2 Objective General: No acute distress, awake and alert HEENT: NCAT, sclera anicteric, PERRL, EOMI. Neck: Supple, no significant jugular venous distention, Lungs: Good inspiratory effort, clear to auscultation bilaterally, no Wheeze or Rales. Heart: Regular rate and rhythm, normal S1/S2, no murmurs Abdomen: soft, nontender, nondistended. Normoactive bowel sounds. Extremities: No Cyanosis , clubbing or edema. Neuro: A&O x 3, Able to move all extremities Skin: warm, no rashes or lesions Psych: Normal mood and affect Assessment/Plan Assessment/Plan 1. Jaundice, abnormal liver function, and epigastric pain --> pancreatitis, most likely gallstone pancreatitis. 2. Dehydration. 3. Hypokalemia. 4. Leukopenia possible medication induce PLAN: on medical/surgical. pain medication. Clear liquid diet. Dr. Barrett from Gastroenterology Dr. Cardozo from General Surgery consultation. monitor laboratory. DVT prophylaxis and heparin subcutaneously. Code status is Full Code. Abx: DC Rocephin IVF MRCP abdomen Impression: Exam degraded by patient motion. Within these limitations: Cholelithiasis. No evidence to suggest acute cholecystitis. No definite choledocholithiasis seen. No biliary ductal dilatation. No focal pancreatic signal abnormality or peripancreatic fluid collection. Multiple T2 hyperintense liver lesions likely representing cysts or hemangiomas. These are not fully characterized on this noncontrast exam. Dynamic contrast enhanced liver MRI may be obtained for definitive characterization on a nonemergent basis clinically indicated. Renal cysts. Colonic diverticulosis. Tre Thomas MD Feb 17, 2017 15:38
--- NOTE | 2017-02-17 15:39 | Pre-Procedure Note/Attestation ---
Pre-Procedure Note/Attestation Complete Prior to Procedure Procedure Narrative: laparoscopic cholecystectomy Indications for Procedure Pre-Operative Diagnosis: gallstone pancreatitis Attestation I attest that I discussed the nature of the procedure; its benefits; risks and complications; and alternatives (and the risks and benefits of such alternatives ), prior to the procedure, with the patient (or the patient's legal outside dealer sales representative). I attest that, if there was a reasonable possibility of needing a blood transfusion, the patient (or the patient's legal outside dealer sales representative) was given the [facility] standardized written summary, pursuant to the [place] Blood Safety Act ([place] Health and Safety Code # 1645, as amended). I attest that I re-evaluated the patient just prior to the surgery and that there has been no change in the patient's H&P, except as documented below: Darrian Cardozo Feb 17, 2017 15:39
[2017-02-17 15:56] LABS: LDL CHOLESTEROL,DIRECT 98 mg/dL (0-99)
[2017-02-17 16:00] VITALS: BP 150/98
[2017-02-17 20:00] VITALS: BP 132/89
[2017-02-17] MEDS: cefTRIAXone 2 GM in D5W 55 ML IVPB SCH (21:05)
[2017-02-17] MEDS: Miralax 17gm pkt ORAL SCH (21:05)
[2017-02-18] VITALS (11 sets, daily range): BP systolic 133–156; BP diastolic 77–91
[2017-02-18] MEDS: D5 1/2NS w/KCl 20mEq 1,000 ML IV SCH ×2 (03:31→12:41)
[2017-02-18 07:12] LABS: MEAN CORPUSCULAR HGB CONC 30.9 G/DL (32.0-36.0); MEAN CORPUSCULAR VOLUME 84 FL (80-99); MEAN PLATELET VOLUME 8.6 FL (6.5-10.1); PLATELET COUNT 125 K/UL (150-450); RED BLOOD COUNT 4.56 M/UL (4.70-6.10); RED CELL DISTRIBUTION WIDTH 12.6 % (11.6-14.8)
[2017-02-18 07:49] LABS: WHITE BLOOD COUNT 2.1 K/UL (4.8-10.8)
[2017-02-18 07:54] LABS: ALANINE AMINOTRANSFERASE 131 U/L (12-78); ALBUMIN/GLOBULIN RATIO 1.2 (1.0-2.7); AMYLASE 45 U/L (25-115); ANION GAP 7 mmol/L (5-15); ASPARTATE AMINO TRANSFERASE 29 U/L (15-37); CALCIUM 7.8 MG/DL (8.5-10.1); CARBON DIOXIDE 28 MMOL/L (21-32); CHLORIDE 108 MMOL/L (98-107); CREATININE 0.8 MG/DL (0.55-1.30); GLOMERULAR FILTRATION RATE > 60 mL/min (>60); LIPASE 193 U/L (73-393); POTASSIUM 3.9 MMOL/L (3.5-5.1); SODIUM 142 MMOL/L (136-145); TOTAL PROTEIN 6.7 G/DL (6.4-8.2)
[2017-02-18] MEDS ORDERED: Lidocaine 1% 10mg/ml/EPI 0.01mg/ml 50ml INJ ONE (07:59)
[2017-02-18] MEDS ORDERED: Bupivacaine 0.25% Inj 30ml INJ ONE (07:59)
[2017-02-18] MEDS ORDERED: LR 1000ml ONE (08:00)
[2017-02-18] MEDS ORDERED: Propofol 200mg/20ml IV ONE (08:00)
[2017-02-18] MEDS ORDERED: Zemuron 50mg/5ml Inj IV ONE (08:00)
[2017-02-18] MEDS ORDERED: Dexamethasone 4mg/ml vial ONE (08:00)
[2017-02-18] MEDS ORDERED: NS Irrig 1000ml ONE (08:00)
[2017-02-18] MEDS ORDERED: Glycopyrrolate 0.2mg/ml 1ml Vial ONE (08:00)
[2017-02-18] MEDS ORDERED: Neostigmine 1mg/ml 10ml Inj ONE (08:00)
[2017-02-18] MEDS ORDERED: Metoprolol 5mg/5ml Inj ONE (08:00)
[2017-02-18] MEDS ORDERED: Sterile Water Irrig 1000ml IRRIG ONE (08:00)
[2017-02-18] MEDS ORDERED: fentaNYL 100 mcg/2 mL IV ONE (08:00)
[2017-02-18 08:11] LABS: BILIRUBIN,DIRECT 0.6 MG/DL (0.0-0.3)
[2017-02-18] MEDS ORDERED: LR 1000ml 1,000 ML IVLG SCH (08:21)
[2017-02-18] MEDS ORDERED: Surgicel 4in x 8in TOPIC ONE (08:26)
[2017-02-18] MEDS ORDERED: Metoclopramide 10mg/2ml Inj IVP PRN (08:30)
[2017-02-18] MEDS ORDERED: Norco 7.5mg/325mg tab ORAL PRN (08:30)
[2017-02-18] MEDS ORDERED: Atropine Inj 1mg/10ml Syr IV PRN (08:30)
[2017-02-18] MEDS ORDERED: Acetaminophen (Non formulary) 100 ML IV ONE (08:30)
[2017-02-18] MEDS ORDERED: fentaNYL 100 mcg/2 mL IV PRN (08:30)
[2017-02-18] MEDS ORDERED: Midazolam 2mg/2ml Inj IVP PRN (08:30)
[2017-02-18] MEDS ORDERED: LORazepam Inj 2mg/ml 1ml IV PRN (08:30)
[2017-02-18] MEDS ORDERED: DiphenhydrAMINE 50mg/ml Inj IVP PRN ×2 (08:30→10:15)
[2017-02-18] MEDS ORDERED: Ketorolac 60mg Inj IV PRN (08:30)
[2017-02-18] MEDS ORDERED: Labetalol 5mg/ml 20ml vial IV PRN (08:30)
[2017-02-18] MEDS ORDERED: Hydromorphone 0.5mg/0.5ml inj IVP PRN (08:30)
[2017-02-18] MEDS ORDERED: oxyCODONE HCL/Acetaminophen 5/325mg ORAL PRN (08:30)
[2017-02-18] MEDS ORDERED: Ketorolac 30mg Inj IV PRN (08:30)
[2017-02-18] MEDS ORDERED: Norco 5mg/325mg tab ORAL PRN ×2 (08:30→10:15)
--- NOTE | 2017-02-18 08:32 | Immediate Post-Op Evaluation ---
Immediate Post-Op Evalulation Immediate Post-Op Evalulation Procedure: Laparoscopic Cholecystectomy Date of Evaluation: Feb 18, 2017 Time of Evaluation: 10:10 IV Fluids: 1100 LR Blood Products: 0 Estimated Blood Loss: 25 Urinary Output: 0 Blood Pressure Systolic: 155 Blood Pressure Diastolic: 97 Pulse Rate: 80 Respiratory Rate: 16 O2 Sat by Pulse Oximetry: 100 Temperature (Fahrenheit): 97.4 Pain Score (1-10): 2 Nausea: No Vomiting: No Complications 0 Patient Status: awake, reacts, patent, extubated, none Hydration Status: adequate Dru Grams Ancef IV Given Within 1 Hr of Incision: Yes Time Given: 08:06 Joel Salcido MD Feb 18, 2017 08:32
--- NOTE | 2017-02-18 08:32 | Anethesia Preoperative Eval ---
Anesthesia Pre-op PMH/ROS General Date of Evaluation: Feb 18, 2017 Time of Evaluation: 07:46 Anesthesiologist: Omari ASA Score: ASA 2 Mallampati Score Class I : Soft palate, uvula, fauces, pillars visible Class II: Soft palate, uvula, fauces visible Class III: Soft palate, base of uvula visible Class IV: Only hard plate visible Mallampati Classification: Class II Surgeon: Cas Diagnosis: Acute Cholecystitis Surgical Procedure: Laparscopic Cholecystectomy Anesthesia History: none Family History: no anesthesia problems Allergies: Coded Allergies: No Known Allergies (Unverified , 02/15/17) Medications: see eMAR Past Medical History Cardiovascular: Reports: HTN Gastrointestinal/Genitourinary: Reports: other - BPH Neurologic/Psychiatric: Reports: other - Seizures Anesthesia Pre-op Phys. Exam Physician Exam Last Vital Signs Date Time Temp Pulse Resp B/P (MAP) Pulse Ox O2 Delivery O2 Flow Rate FiO2 02/18/17 04:00 97.5 54 21 137/80 100 02/18/17 00:00 Room Air Constitutional: NAD Neurologic: CN 2-12 intact Cardiovascular: RRR Respiratory: CTA Gastrointestinal: S/NT/ND Airway Exam Mallampati Score: Class II MO: full ROM: full Teeth: intact Anesthesia Pre-op A/P Labs Hematology Test 02/18/17 05:00 White Blood Count 2.1 K/UL (4.8-10.8) *L Red Blood Count 4.56 M/UL (4.70-6.10) L Hemoglobin 11.9 G/DL (14.2-18.0) L Hematocrit 38.4 % (42.0-52.0) L Mean Corpuscular Volume 84 FL (80-99) Mean Corpuscular Hemoglobin 26.0 PG (27.0-31.0) L Mean Corpuscular Hemoglobin Concent 30.9 G/DL (32.0-36.0) L Red Cell Distribution Width 12.6 % (11.6-14.8) Platelet Count 125 K/UL (150-450) L Mean Platelet Volume 8.6 FL (6.5-10.1) Neutrophils (%) (Auto) % (45.0-75.0) Lymphocytes (%) (Auto) % (20.0-45.0) Monocytes (%) (Auto) % (1.0-10.0) Eosinophils (%) (Auto) % (0.0-3.0) Basophils (%) (Auto) % (0.0-2.0) Neutrophils % (Manual) Pending Lymphocytes % (Manual) Pending Platelet Estimate Pending Platelet Morphology Pending Chemistry Test 02/18/17 05:00 Sodium Level 142 MMOL/L (136-145) Potassium Level 3.9 MMOL/L (3.5-5.1) Chloride Level 108 MMOL/L (98-107) H Carbon Dioxide Level 28 MMOL/L (21-32) Anion Gap 7 mmol/L (5-15) Blood Urea Nitrogen 5 mg/dL (7-18) L Creatinine 0.8 MG/DL (0.55-1.30) Estimat Glomerular Filtration Rate > 60 mL/min (>60) Glucose Level 117 MG/DL (74-106) H Calcium Level 7.8 MG/DL (8.5-10.1) L Total Bilirubin 1.6 MG/DL (0.2-1.0) H Direct Bilirubin 0.6 MG/DL (0.0-0.3) H Aspartate Amino Transf (AST/SGOT) 29 U/L (15-37) Alanine Aminotransferase (ALT/SGPT) 131 U/L (12-78) H Alkaline Phosphatase 60 U/L (46-116) Total Protein 6.7 G/DL (6.4-8.2) Albumin 3.7 G/DL (3.4-5.0) Globulin 3.0 g/dL Albumin/Globulin Ratio 1.2 (1.0-2.7) Amylase Level 45 U/L (25-115) Lipase 193 U/L (73-393) Risk Assessment & Plan Assessment: ASA 2 Plan: GA, BIS, GlideScope Status Change Before Surgery: No Pre-Antibiotics Dru Grams Ancef Iv Given Within 1 Hr of Incision: Yes Time Given: 08:06 Joel Salcido MD Feb 18, 2017 08:32
[2017-02-18] MEDS ORDERED: NS Irrig 1000ml IRRIG ONE (08:33)
[2017-02-18 09:31] LABS: BAND NEUTROPHILS % (MANUAL) 0 % (0-8); BASOPHILS % (MANUAL) 0 % (0-2); EOSINOPHILS % (MANUAL) 5 % (0-3); HYPOCHROMASIA 1+; LYMPHOCYTES % (MANUAL) 51 % (20-45); NEUTROPHILS % (MANUAL) 31 % (45-75); PLATELET ESTIMATE DECREASED; PLATELET MORPHOLOGY NORMAL; TOTAL CELLS COUNTED 100
--- NOTE | 2017-02-18 10:05 | Brief Operative Note ---
Immediate Post Operative Note Operative Note Pre-op Diagnosis: gallstone pancreatitis Procedure: laparoscopic cholecystectomy Findings: consistent w/pre-op dx studies Surgeon: dia Anesthesiologist: cyril Anesthesia: general Specimen: yes - gallbladder Complications: none Condition: stable Fluids: see records Estimated Blood Loss: minimal Drains: none Implant(s) used?: No Darrian Cardozo Feb 18, 2017 10:05
[2017-02-18] MEDS ORDERED: Milk of Magnesia 30ml Ud ORAL PRN (10:15)
[2017-02-18] MEDS ORDERED: Norco 10mg/325mg tab ORAL PRN (10:15)
--- NOTE | 2017-02-18 10:49 | General Progress Note ---
Assessment/Plan Problem List: (1) Jaundice ICD Codes: R17 - Unspecified jaundice SNOMED: 30406354 (2) LFT elevation ICD Codes: R79.89 - Other specified abnormal findings of blood chemistry SNOMED: 431169423, 264506902 (3) Acute gallstone pancreatitis ICD Codes: K85.10 - Biliary acute pancreatitis without necrosis or infection SNOMED: 804448756 Assessment/Plan s/p cholecystectomy fu post op Subjective ROS Limited/Unobtainable: Yes Allergies: Coded Allergies: No Known Allergies (Unverified , 02/15/17) Subjective Objective Last 24 Hour Vital Signs Date Time Temp Pulse Resp B/P (MAP) Pulse Ox O2 Delivery O2 Flow Rate FiO2 02/18/17 10:30 61 17 150/85 100 Nasal Cannula 3.0 02/18/17 10:20 62 15 154/86 100 Simple Mask 6.0 02/18/17 10:10 75 17 144/84 100 Simple Mask 6.0 02/18/17 09:59 97.4 80 16 155/80 100 Simple Mask 6.0 02/18/17 09:58 80 16 100 02/18/17 04:00 97.5 54 21 137/80 100 02/18/17 00:00 Room Air 02/18/17 00:00 97.9 56 21 143/91 98 02/17/17 20:00 97.8 67 18 132/89 99 02/17/17 20:00 Room Air 02/17/17 16:00 97.9 54 20 150/98 100 02/17/17 12:00 97.2 61 18 141/91 99 Room Air Intake and Output 02/17/17 02/18/17 19:00 07:00 Intake Total 1005 ml 1430 ml Balance 1005 ml 1430 ml Intake Oral 880 ml IV Total 125 ml 1430 ml # Voids 3 4 Laboratory Tests 02/18/17 05:00: White Blood Count 2.1*L, Red Blood Count 4.56L, Hemoglobin 11.9L, Hematocrit 38.4L, Mean Corpuscular Volume 84, Mean Corpuscular Hemoglobin 26.0L, Mean Corpuscular Hemoglobin Concent 30.9L, Red Cell Distribution Width 12.6, Platelet Count 125L, Mean Platelet Volume 8.6, Neutrophils (%) (Auto) , Lymphocytes (%) (Auto) , Monocytes (%) (Auto) , Eosinophils (%) (Auto) , Basophils (%) (Auto) , Differential Total Cells Counted 100, Neutrophils % ( Manual) 31L, Lymphocytes % (Manual) 51H, Monocytes % (Manual) 13H, Eosinophils % (Manual) 5H, Basophils % (Manual) 0, Band Neutrophils 0, Platelet Estimate DecreasedL, Platelet Morphology Normal, Hypochromasia 1+, Sodium Level 142, Potassium Level 3.9, Chloride Level 108H, Carbon Dioxide Level 28, Anion Gap 7, Blood Urea Nitrogen 5L, Creatinine 0.8, Estimat Glomerular Filtration Rate > 60 , Glucose Level 117H, Calcium Level 7.8L, Total Bilirubin 1.6H, Direct Bilirubin 0.6H, Aspartate Amino Transf (AST/SGOT) 29, Alanine Aminotransferase ( ALT/SGPT) 131H, Alkaline Phosphatase 60, Total Protein 6.7, Albumin 3.7, Globulin 3.0, Albumin/Globulin Ratio 1.2, Amylase Level 45, Lipase 193 Height (Feet): 6 Height (Inches): 0.00 Weight (Pounds): 210 General Appearance: alert EENT: normal ENT inspection Neck: supple Cardiovascular: normal rate, gallop/S3 Abdomen: soft, other - post surgical Extremities: non-tender MAXX YOUNGBLOOD Feb 18, 2017 10:49
--- NOTE | 2017-02-18 16:30 | Operative Note - Dictated ---
DATE OF OPERATION: 02/18/2017 PREOPERATIVE DIAGNOSIS: Gallstone pancreatitis. POSTOPERATIVE DIAGNOSIS: Gallstone pancreatitis. OPERATION PERFORMED: Laparoscopic cholecystectomy. ATTENDING SURGEON: Darrian Cardozo M.D. AUTOMATIC MOLD SANDER: None. ANESTHESIOLOGIST: Joel Salcido M.D. ANESTHESIA: General MEDICAL DIRECTOR/HEAD TEAM PHYSICIAN. ESTIMATED BLOOD LOSS: Minimal. IV FLUIDS: Please see anesthesia records. COMPLICATIONS: None. SPECIMENS: Gallbladder sent to pathology for review. WOUND CLASSIFICATION: Class III. COUNTS: Sponge and needle count correct x2. ANTIBIOTICS: The patient was on scheduled Rocephin 2 g daily prior to entering the operating room. INDICATIONS FOR PROCEDURE: The patient is a 66-year-old male who presented to emergency department with worsening abdominal pain and jaundice. The patient states that for approximately five days he noted some vague right upper quadrant abdominal pain as well as change in the tone of his skin and sclera and darker urine. On admission, the patient had laboratory data, which identified the patient to be jaundiced with total bilirubin of 8.9 and pancreatitis with lipase of approximately 5000. CT and MRI were performed, which identified cholelithiasis and MRCP with patent and clear biliary tract. Over the subsequent few days, the patient's total bilirubin trended down as well as his LFTs. His lipase normalized. His pain resolved. Given these findings and acute episode of [id number] gallstone pancreatitis, cholecystectomy was recommended prior to discharge once the patient was stable. The risks, benefits, and alternatives to surgery were discussed with the patient in detail. The patient expressed understanding and consented to surgery. OPERATIVE NOTE: The patient was taken to the operating room and placed on the operating table in supine position with bilateral arms out. All bony prominences were well padded with gel pads. SCDs were placed. Preoperative time-out was taken identifying the patient, procedure, operative staff, and surgical staff. General anesthesia was induced and the patient was intubated. The abdomen was clipped, prepped, and draped in standard surgical fashion. We began by making an incision in the umbilicus with a fresh #15 blade. Incision was carried down to the fascia where a 1 cm umbilical hernia defect was identified. The fascia was elevated and peritoneum incised and entry into the abdomen obtained visually without complication. Using the open Ashwin technique, a Ashwin trocar was inserted and the abdomen was then insufflated to 12 to 15 mmHg. The laparoscope was then inserted and abdomen was inspected. There were some omental adhesions in the right lower quadrant and epigastric region to the anterior abdominal wall. There were no hernias or other abnormalities identified. The gallbladder was visualized. Secondary trocars were then placed in the following locations beginning with a 12 mm trocar in the right epigastric region followed by two 5 mm trocars in the right subcostal region. The dome of the gallbladder was grasped using most lateral port and dense omental adhesions were dissected off the gallbladder with electrocautery and blunt dissection as necessary. The gallbladder was then retracted over the dome of the liver. Once this was complete, the infundibulum was identified and grasped through the midclavicular subcostal port and retracted towards the appendix. There was a fair amount of thick dense chronic inflammatory tissue and omental adhesions around the area of the infundibulum and after careful dissection, the cystic duct and artery were identified and circumferentially dissected out. Before any clips or division was performed, the cystic artery and duct were identified to be the only two structures entering within the gallbladder and the cystic plate was noted and the critical view was obtained. Once critical view was obtained and satisfactory, the cystic artery and duct were doubly clipped and divided. The gallbladder was then removed from the gallbladder bed with electrocautery and placed in endoscopic retrieval bag. The gallbladder was removed through the umbilical port and sent to pathology for review. Copious amounts of irrigation was performed and hemostasis was noted. A piece of Surgicel was placed in the gallbladder fossa. Following this, we began the conclusion of our procedure. Just prior to desufflating the abdomen, the cystic duct and artery were identified with appropriate clips without any oozing of blood or leakage of bile from the cystic duct. The gallbladder fossa was identified and fairly hemostatic, but given the raw surface Surgicel was left in place. At this time, secondary trocars were removed under direct visualization. The abdomen was allowed to desufflate. The local anesthetic was infiltrated to all port sites and the skin incisions. The umbilical fascial defect was closed using a #0 Vicryl [id number] suture. The remaining skin incisions were then closed using 4-0 Monocryl subcuticular interrupted sutures. The wounds were cleansed and skin glue was applied. The patient tolerated the procedure well and was taken to the postanesthetic care unit in stable condition. Darrian Cardozo M.D. DR: Delmi JOB#: [id number] CC:
[2017-02-18] MEDS: Docusate 100mg cap ORAL SCH (17:10)
[2017-02-18] MEDS: Miralax 17gm pkt ORAL SCH (20:12)
[2017-02-18] MEDS: cefTRIAXone 2 GM in D5W 55 ML IVPB SCH (20:12)
--- NOTE | 2017-02-18 23:44 | Internal Med Progress Note ---
Subjective Physician Name Tre Thomas Attending Physician Tre Thomas MD Current Medications Medications (Trade) Dose Ordered Sig/Alexander Route PRN Reason Start Time Stop Time Status Last Admin Dose Admin Acetaminophen/ Hydrocodone Bitart ([place] 10/325) 1 ea Q4H PRN ORAL Severe Pain (Pain Scale 7-10) 02/18/17 10:15 02/25/17 10:14 Acetaminophen/ Hydrocodone Bitart ([place] 5/325) 1 tab Q4H PRN ORAL Moderate Pain (Pain Scale 4-6) 02/18/17 10:15 02/25/17 10:14 Al Hydroxide/Mg Hydroxide ([place]yl[place]) 15 ml Q6H PRN ORAL DYSPEPSIA 02/18/17 10:15 03/20/17 10:14 Ceftriaxone Sodium 2 gm/ Dextrose 55 ml @ 110 mls/hr Q24H IVPB 02/17/17 21:00 02/24/17 20:59 02/18/17 20:12 Diphenhydramine HCl (Benadryl) 12.5 mg Q6H PRN IVP Itching/Pruritis 02/18/17 10:15 03/20/17 10:14 Docusate Sodium (Colace) 100 mg TWICE A DAY ORAL 02/18/17 18:00 03/20/17 17:59 02/18/17 17:10 Hydromorphone HCl (Dilaudid) 2 mg Q3H PRN IVP pain score 7-10 02/18/17 10:15 02/25/17 10:14 Magnesium Hydroxide (Mom) 30 ml BIDPRN PRN ORAL Constipation 02/18/17 10:15 03/20/17 10:14 Morphine Sulfate (Morphine Sulfate) 2 mg Q4H PRN IVP Moderate Pain (Pain Scale 4-6) 02/15/17 09:00 02/22/17 08:59 02/15/17 20:27 Morphine Sulfate (Morphine Sulfate) 4 mg Q4H PRN IVP Severe Pain (Pain Scale 7-10) 02/15/17 09:00 02/22/17 08:59 Ondansetron HCl (Zofran) 4 mg Q6H PRN IVP Nausea & Vomiting 02/18/17 10:15 03/20/17 10:14 Polyethylene Glycol (Miralax) 17 gm BEDTIME ORAL 02/16/17 21:00 03/18/17 20:59 02/18/17 20:12 Allergies: Coded Allergies: No Known Allergies (Unverified , 02/15/17) Subjective awake, alert, responsive, NAD, No CP or SOB, C/O abdominal discomfort, Surgery in Morning today . Objective Last Vital Signs Date Time Temp Pulse Resp B/P (MAP) Pulse Ox O2 Delivery O2 Flow Rate FiO2 02/18/17 20:00 98.1 80 20 139/77 97 Room Air 02/18/17 12:00 2.0 Laboratory Tests Test 02/18/17 05:00 White Blood Count 2.1 K/UL (4.8-10.8) *L Red Blood Count 4.56 M/UL (4.70-6.10) L Hemoglobin 11.9 G/DL (14.2-18.0) L Hematocrit 38.4 % (42.0-52.0) L Mean Corpuscular Volume 84 FL (80-99) Mean Corpuscular Hemoglobin 26.0 PG (27.0-31.0) L Mean Corpuscular Hemoglobin Concent 30.9 G/DL (32.0-36.0) L Red Cell Distribution Width 12.6 % (11.6-14.8) Platelet Count 125 K/UL (150-450) L Mean Platelet Volume 8.6 FL (6.5-10.1) Neutrophils (%) (Auto) % (45.0-75.0) Lymphocytes (%) (Auto) % (20.0-45.0) Monocytes (%) (Auto) % (1.0-10.0) Eosinophils (%) (Auto) % (0.0-3.0) Basophils (%) (Auto) % (0.0-2.0) Differential Total Cells Counted 100 Neutrophils % (Manual) 31 % (45-75) L Lymphocytes % (Manual) 51 % (20-45) H Monocytes % (Manual) 13 % (1-10) H Eosinophils % (Manual) 5 % (0-3) H Basophils % (Manual) 0 % (0-2) Band Neutrophils 0 % (0-8) Platelet Estimate Decreased L Platelet Morphology Normal Hypochromasia 1+ Sodium Level 142 MMOL/L (136-145) Potassium Level 3.9 MMOL/L (3.5-5.1) Chloride Level 108 MMOL/L (98-107) H Carbon Dioxide Level 28 MMOL/L (21-32) Anion Gap 7 mmol/L (5-15) Blood Urea Nitrogen 5 mg/dL (7-18) L Creatinine 0.8 MG/DL (0.55-1.30) Estimat Glomerular Filtration Rate > 60 mL/min (>60) Glucose Level 117 MG/DL (74-106) H Calcium Level 7.8 MG/DL (8.5-10.1) L Total Bilirubin 1.6 MG/DL (0.2-1.0) H Direct Bilirubin 0.6 MG/DL (0.0-0.3) H Aspartate Amino Transf (AST/SGOT) 29 U/L (15-37) Alanine Aminotransferase (ALT/SGPT) 131 U/L (12-78) H Alkaline Phosphatase 60 U/L (46-116) Total Protein 6.7 G/DL (6.4-8.2) Albumin 3.7 G/DL (3.4-5.0) Globulin 3.0 g/dL Albumin/Globulin Ratio 1.2 (1.0-2.7) Amylase Level 45 U/L (25-115) Lipase 193 U/L (73-393) Intake and Output 02/17/17 02/18/17 19:00 07:00 Intake Total 1005 ml 1430 ml Balance 1005 ml 1430 ml Intake Oral 880 ml IV Total 125 ml 1430 ml # Voids 3 4 Objective General: No acute distress, awake and alert HEENT: NCAT, sclera anicteric, PERRL, EOMI. Neck: Supple, no significant jugular venous distention, Lungs: Good inspiratory effort, clear to auscultation bilaterally, no Wheeze or Rales. Heart: Regular rate and rhythm, normal S1/S2, no murmurs Abdomen: soft, nontender, mild distended. Normoactive bowel sounds. laparoscopic incision site intact. Extremities: No Cyanosis , clubbing or edema. Neuro: A&O x 3, Able to move all extremities Skin: warm, no rashes or lesions Psych: Normal mood and affect Assessment/Plan Assessment/Plan 1. Jaundice, abnormal liver function, and epigastric pain --> pancreatitis, most likely gallstone pancreatitis --> Laparoscopic cholecystectomy. (2016). 2. Dehydration. 3. Hypokalemia. 4. Leukopenia possible medication induce PLAN: on medical/surgical. pain medication. Dr. Barrett from Gastroenterology Dr. Cardozo from General Surgery consultation. monitor laboratory. DVT prophylaxis and heparin subcutaneously. Code status is Full Code. Dc home in AM. IVF MRCP abdomen Impression: Exam degraded by patient motion. Within these limitations: Cholelithiasis. No evidence to suggest acute cholecystitis. No definite choledocholithiasis seen. No biliary ductal dilatation. No focal pancreatic signal abnormality or peripancreatic fluid collection. Multiple T2 hyperintense liver lesions likely representing cysts or hemangiomas. These are not fully characterized on this noncontrast exam. Dynamic contrast enhanced liver MRI may be obtained for definitive characterization on a nonemergent basis clinically indicated. Renal cysts. Colonic diverticulosis. Tre Thomas MD Feb 18, 2017 23:44
[2017-02-19] VITALS: BP 115/79
[2017-02-19 04:21] VITALS: BP 138/87
[2017-02-19 06:58] LABS: BASOPHILS % (AUTO) 0.6 % (0.0-2.0); EOSINOPHILS % (AUTO) 0.1 % (0.0-3.0); MEAN CORPUSCULAR HEMOGLOBIN 25.7 PG (27.0-31.0); MEAN CORPUSCULAR HGB CONC 30.8 G/DL (32.0-36.0); MEAN CORPUSCULAR VOLUME 83 FL (80-99); MEAN PLATELET VOLUME 8.6 FL (6.5-10.1); NEUTROPHILS % (AUTO) 71.3 % (45.0-75.0); PLATELET COUNT 118 K/UL (150-450); RED BLOOD COUNT 4.45 M/UL (4.70-6.10); RED CELL DISTRIBUTION WIDTH 12.6 % (11.6-14.8); WHITE BLOOD COUNT 6.8 K/UL (4.8-10.8)
[2017-02-19 07:12] LABS: ALANINE AMINOTRANSFERASE 115 U/L (12-78); ALBUMIN/GLOBULIN RATIO 1.3 (1.0-2.7); ANION GAP 7 mmol/L (5-15); ASPARTATE AMINO TRANSFERASE 34 U/L (15-37); CALCIUM 8.2 MG/DL (8.5-10.1); CARBON DIOXIDE 28 MMOL/L (21-32); CHLORIDE 106 MMOL/L (98-107); CREATININE 0.9 MG/DL (0.55-1.30); GLOMERULAR FILTRATION RATE > 60 mL/min (>60); POTASSIUM 4.1 MMOL/L (3.5-5.1); SODIUM 141 MMOL/L (136-145); TOTAL PROTEIN 6.6 G/DL (6.4-8.2)
[2017-02-19 07:16] LABS: BILIRUBIN,DIRECT 0.3 MG/DL (0.0-0.3)
[2017-02-19 08:06] VITALS: BP 151/91
[2017-02-19] MEDS: Docusate 100mg cap ORAL SCH (09:26)
[2017-02-19 12:00] VITALS: BP 149/89
--- NOTE | 2017-02-19 13:11 | General Progress Note ---
Progress Note Progress Note Surgery: doing well. no acute events. comfortable. pain well controlled. no n/v/f/c. passing flatus. awaiting BM. tolerating diet. ambulatory afebrile, HD Stable, VSS, labs improved. abdomen soft, nt/nd, bs+, incisions c/d/i POD #1 s/p lap ruthann for gallstone pancreatitis. recovering -okay to d/c from surgical standpoint -diet as tolerated -activity as tolerated -okay to shower -Rx written (norco, ibuprofen, colace) -follow up with me in 1 week. Darrian Cardozo Feb 19, 2017 13:11
--- NOTE | 2017-02-19 14:59 | GI Progress Note ---
Assessment/Plan Problems: (1) Acute gallstone pancreatitis ICD Codes: K85.10 - Biliary acute pancreatitis without necrosis or infection SNOMED: 686831264 (2) Pancreatitis, acute ICD Codes: K85.90 - Acute pancreatitis without necrosis or infection, unspecified SNOMED: 171835452 Qualifiers: Qualified Codes: K85.90 - Acute pancreatitis without necrosis or infection, unspecified (3) LFT elevation ICD Codes: R79.89 - Other specified abnormal findings of blood chemistry SNOMED: 589156383, 690053063 Status: stable, progressing Status Narrative Discussed with Dr. Barrett. Assessment/Plan s/p cholecystectomy fu post op on normal diet pain mgmt OOB + IS fu labs Subjective Subjective abdominal pain surgical incision Objective Last 24 Hour Vital Signs Date Time Temp Pulse Resp B/P (MAP) Pulse Ox O2 Delivery O2 Flow Rate FiO2 02/19/17 12:00 98.1 60 18 149/89 98 Room Air 02/19/17 08:06 98.1 62 18 151/91 98 Room Air 02/19/17 04:21 98.2 77 20 138/87 98 Room Air 02/19/17 00:00 98.1 81 20 115/79 100 Room Air 02/18/17 20:00 98.1 80 20 139/77 97 Room Air 02/18/17 16:00 97.0 65 18 149/80 98 Room Air Intake and Output 02/18/17 02/19/17 19:00 07:00 Intake Total 240 ml 295 ml Output Total 550 ml Balance -310 ml 295 ml Intake Oral 240 ml 240 ml IV Total 55 ml Output Urine Total 550 ml # Voids 2 Laboratory Tests Test 02/19/17 05:10 White Blood Count 6.8 K/UL (4.8-10.8) # Red Blood Count 4.45 M/UL (4.70-6.10) L Hemoglobin 11.4 G/DL (14.2-18.0) L Hematocrit 37.1 % (42.0-52.0) L Mean Corpuscular Volume 83 FL (80-99) Mean Corpuscular Hemoglobin 25.7 PG (27.0-31.0) L Mean Corpuscular Hemoglobin Concent 30.8 G/DL (32.0-36.0) L Red Cell Distribution Width 12.6 % (11.6-14.8) Platelet Count 118 K/UL (150-450) L Mean Platelet Volume 8.6 FL (6.5-10.1) Neutrophils (%) (Auto) 71.3 % (45.0-75.0) Lymphocytes (%) (Auto) 19.0 % (20.0-45.0) L Monocytes (%) (Auto) 9.0 % (1.0-10.0) Eosinophils (%) (Auto) 0.1 % (0.0-3.0) Basophils (%) (Auto) 0.6 % (0.0-2.0) Sodium Level 141 MMOL/L (136-145) Potassium Level 4.1 MMOL/L (3.5-5.1) Chloride Level 106 MMOL/L (98-107) Carbon Dioxide Level 28 MMOL/L (21-32) Anion Gap 7 mmol/L (5-15) Blood Urea Nitrogen 10 mg/dL (7-18) Creatinine 0.9 MG/DL (0.55-1.30) Estimat Glomerular Filtration Rate > 60 mL/min (>60) Glucose Level 111 MG/DL (74-106) H Calcium Level 8.2 MG/DL (8.5-10.1) L Total Bilirubin 1.1 MG/DL (0.2-1.0) H Direct Bilirubin 0.3 MG/DL (0.0-0.3) Aspartate Amino Transf (AST/SGOT) 34 U/L (15-37) Alanine Aminotransferase (ALT/SGPT) 115 U/L (12-78) H Alkaline Phosphatase 56 U/L (46-116) Total Protein 6.6 G/DL (6.4-8.2) Albumin 3.7 G/DL (3.4-5.0) Globulin 2.9 g/dL Albumin/Globulin Ratio 1.3 (1.0-2.7) Height (Feet): 6 Height (Inches): 0.00 Weight (Pounds): 210 General Appearance: WD/WN, no apparent distress, alert Cardiovascular: normal rate Respiratory/Chest: normal breath sounds, no respiratory distress Abdominal Exam: normal bowel sounds, non tender, soft, incision site Extremities: normal range of motion, non-tender Rosie Wheeler N.P. Feb 19, 2017 14:59
[2017-02-19] MEDS ORDERED: NORCO 5-325 TA1 EAC1 ORAL (15:17)
[2017-02-19] MEDS ORDERED: COLACE100 MG ORAL (15:18)
[2017-02-19] MEDS ORDERED: IBUPROFEN600 MG ORAL (15:18)
[2017-02-19] MEDS ORDERED: Tubing IV Secondary IV ONE (15:36)
--- NOTE | 2017-02-19 15:42 | Internal Med Progress Note ---
Subjective Physician Name Tre Thomas Attending Physician Tre Thomas MD Current Medications Medications (Trade) Dose Ordered Sig/Alexander Route PRN Reason Start Time Stop Time Status Last Admin Dose Admin Acetaminophen (Tylenol) 650 mg Q6H PRN ORAL Mild Pain/Temp > 100.5 02/19/17 07:00 03/21/17 06:59 Acetaminophen/ Hydrocodone Bitart ([place]ton 10/325) 1 ea Q4H PRN ORAL Severe Pain (Pain Scale 7-10) 02/18/17 10:15 02/25/17 10:14 Acetaminophen/ Hydrocodone Bitart ([place] 5/325) 1 tab Q4H PRN ORAL Moderate Pain (Pain Scale 4-6) 02/18/17 10:15 02/25/17 10:14 Al Hydroxide/Mg Hydroxide (Mylanta) 15 ml Q6H PRN ORAL DYSPEPSIA 02/18/17 10:15 03/20/17 10:14 Diphenhydramine HCl (Benadryl) 12.5 mg Q6H PRN IVP Itching/Pruritis 02/18/17 10:15 03/20/17 10:14 Docusate Sodium (Colace) 100 mg TWICE A DAY ORAL 02/18/17 18:00 03/20/17 17:59 02/19/17 09:26 Magnesium Hydroxide (Mom) 30 ml BIDPRN PRN ORAL Constipation 02/18/17 10:15 03/20/17 10:14 02/19/17 02:07 Ondansetron HCl (Zofran) 4 mg Q6H PRN IVP Nausea & Vomiting 02/18/17 10:15 03/20/17 10:14 Polyethylene Glycol (Miralax) 17 gm BEDTIME ORAL 02/16/17 21:00 03/18/17 20:59 02/18/17 20:12 Allergies: Coded Allergies: No Known Allergies (Unverified , 02/15/17) Subjective awake, alert, responsive, NAD, No CP or SOB, feeling better . Objective Last Vital Signs Date Time Temp Pulse Resp B/P (MAP) Pulse Ox O2 Delivery O2 Flow Rate FiO2 02/19/17 12:00 98.1 60 18 149/89 98 Room Air 02/18/17 12:00 2.0 Laboratory Tests Test 02/19/17 05:10 White Blood Count 6.8 K/UL (4.8-10.8) # Red Blood Count 4.45 M/UL (4.70-6.10) L Hemoglobin 11.4 G/DL (14.2-18.0) L Hematocrit 37.1 % (42.0-52.0) L Mean Corpuscular Volume 83 FL (80-99) Mean Corpuscular Hemoglobin 25.7 PG (27.0-31.0) L Mean Corpuscular Hemoglobin Concent 30.8 G/DL (32.0-36.0) L Red Cell Distribution Width 12.6 % (11.6-14.8) Platelet Count 118 K/UL (150-450) L Mean Platelet Volume 8.6 FL (6.5-10.1) Neutrophils (%) (Auto) 71.3 % (45.0-75.0) Lymphocytes (%) (Auto) 19.0 % (20.0-45.0) L Monocytes (%) (Auto) 9.0 % (1.0-10.0) Eosinophils (%) (Auto) 0.1 % (0.0-3.0) Basophils (%) (Auto) 0.6 % (0.0-2.0) Sodium Level 141 MMOL/L (136-145) Potassium Level 4.1 MMOL/L (3.5-5.1) Chloride Level 106 MMOL/L (98-107) Carbon Dioxide Level 28 MMOL/L (21-32) Anion Gap 7 mmol/L (5-15) Blood Urea Nitrogen 10 mg/dL (7-18) Creatinine 0.9 MG/DL (0.55-1.30) Estimat Glomerular Filtration Rate > 60 mL/min (>60) Glucose Level 111 MG/DL (74-106) H Calcium Level 8.2 MG/DL (8.5-10.1) L Total Bilirubin 1.1 MG/DL (0.2-1.0) H Direct Bilirubin 0.3 MG/DL (0.0-0.3) Aspartate Amino Transf (AST/SGOT) 34 U/L (15-37) Alanine Aminotransferase (ALT/SGPT) 115 U/L (12-78) H Alkaline Phosphatase 56 U/L (46-116) Total Protein 6.6 G/DL (6.4-8.2) Albumin 3.7 G/DL (3.4-5.0) Globulin 2.9 g/dL Albumin/Globulin Ratio 1.3 (1.0-2.7) Intake and Output 02/18/17 02/19/17 19:00 07:00 Intake Total 240 ml 295 ml Output Total 550 ml Balance -310 ml 295 ml Intake Oral 240 ml 240 ml IV Total 55 ml Output Urine Total 550 ml # Voids 2 Objective General: No acute distress, awake and alert HEENT: NCAT, sclera anicteric, PERRL, EOMI. Neck: Supple, no significant jugular venous distention, Lungs: Good inspiratory effort, clear to auscultation bilaterally, no Wheeze or Rales. Heart: Regular rate and rhythm, normal S1/S2, no murmurs Abdomen: soft, nontender, mild distended. Normoactive bowel sounds. laparoscopic incision site intact. Extremities: No Cyanosis , clubbing or edema. Neuro: A&O x 3, Able to move all extremities Skin: warm, no rashes or lesions Psych: Normal mood and affect Assessment/Plan Assessment/Plan 1. Jaundice, abnormal liver function, and epigastric pain --> pancreatitis, most likely gallstone pancreatitis --> Laparoscopic cholecystectomy. (2016). 2. Dehydration. 3. Hypokalemia. 4. Leukopenia possible medication induce PLAN: on medical/surgical. pain medication. Dr. Barrett from Gastroenterology Dr. Cardozo from General Surgery consultation. monitor laboratory. DVT prophylaxis and heparin subcutaneously. Code status is Full Code. Dc home today. MRCP abdomen Impression: Exam degraded by patient motion. Within these limitations: Cholelithiasis. No evidence to suggest acute cholecystitis. No definite choledocholithiasis seen. No biliary ductal dilatation. No focal pancreatic signal abnormality or peripancreatic fluid collection. Multiple T2 hyperintense liver lesions likely representing cysts or hemangiomas. These are not fully characterized on this noncontrast exam. Dynamic contrast enhanced liver MRI may be obtained for definitive characterization on a nonemergent basis clinically indicated. Renal cysts. Colonic diverticulosis. Tre Thomas MD Feb 19, 2017 15:42
--- NOTE | 2017-02-21 12:46 | Discharge Summary ---
Discharge Summary Hospital Course Date of Admission Feb 15, 2017 at 04:33 Date of Discharge Feb 19, 2017 at 15:37 Admitting Diagnosis pancreatitis, gallstones TAMIR Earle Castellanos is a 66 year old male who was admitted on Feb 15, 2017 at 04: 33 for Pacreatitis,Gallstones Hospital Course [id number] Discharge Discharge Disposition Patient was discharged to Home (01) Discharge Diagnoses: Mary Lornezo NP Feb 21, 2017 12:46
--- NOTE | 2017-02-21 22:45 | Discharge Summary 2 SIG ---
DATE OF ADMISSION: 02/15/2017 DATE OF DISCHARGE: 02/19/2017 CONSULTANTS: 1. Darrian Cardozo M.D. 2. Owen Barrett M.D. BRIEF HOSPITAL COURSE: The patient is a 66-year-old male, who denies any medical history or past surgical history, presented to the emergency room complaining of abdominal pain associated with constipation four days prior to admission. He had poor appetite and no BM. He induced himself to vomit. Symptoms did not improve and got progressively worse over the past several days. On evaluation at ED, blood work showed significantly elevated lipase of 5188. Total bilirubin 8.9. LFTs were elevated. Amylase was 395. He had a CT scan of the abdomen and pelvis that showed diverticulosis without any definite evidence of diverticulitis and cholelithiasis without acute cholecystitis. He was admitted to medical/surgical floor for jaundice, abnormal LFTs, and epigastric pain, most likely secondary to pancreatitis and possible gallstone pancreatitis. He was initially placed on NPO and was given IV hydration and pain management. He was started on IV Rocephin. He had an MRCP done that showed cholelithiasis, no evidence of acute cholecystitis, and no definite choledocholithiasis seen. Lipase significantly down trended. Diet was eventually advanced. The patient likely passed the stone. Pancreatitis resolved. He then underwent laparoscopic cholecystectomy on 02/18/2017. He tolerated the procedure well. First day postop, he was passing flatus and was tolerating diet. Abdomen was soft, nontender, and nondistended with positive bowel sounds. Incisions were clean, dry, and intact. He was discharged home. FINAL DIAGNOSES: 1. Acute pancreatitis, most likely gallstone pancreatitis, status post laparoscopic cholecystectomy on 02/18/2017. 2. Dehydration. 3. Hypokalemia. 4. Leukopenia, possible medication induced. DISPOSITION: The patient was discharged home. DISCHARGE MEDICATIONS: Refer to medication list. DISCHARGE INSTRUCTIONS: Diet as tolerated. Activity as tolerated. Okay to shower. Follow up with Dr. Cardozo in a week. Tre William, M.D. I have been assigned to dictate discharge summary on this account and I was not involved in the patient's management. Mary Lorenzo N.P. DR: Terell JOB#: [id number] CC: SENIA
== END 2017-02-19 15:37 | disposition home or self-care (01) | DRG 418 ==
LOC: EMR 03:38 → 4E 04:33 → EDBEDREQ 05:59 → 4E 06:44
PROC: 0FT44ZZ Resection of Gallbladder, Percutaneous Endoscopic Approach (ICD-10-PCS; principal; 2017-02-18 08:00)
DX: K85.10 Biliary acute pancreatitis without necrosis or infection (principal); R17 Unspecified jaundice; D70.2 Other drug-induced agranulocytosis; R16.0 Hepatomegaly, not elsewhere classified; E86.0 Dehydration; E87.6 Hypokalemia; K57.90 Diverticulosis of intestine, part unspecified, without perforation or abscess without bleeding
CPT/HCPCS: 36415; 74177; 74181; 80053; 80061; 81003; 82150; 82248; 82378; 83690; 83721; 83735; 84100; 85007; 85025; 85610; 85730; 94003; 94150; 99285; J2405; J2710